=== PATIENT | female | born 1940 | race American Indian/Alaskan Native ===

== ENCOUNTER → 2016-12-02 08:14 | Outpatient (CLI) | payer MEDICARE, OTHER | END | disposition home or self-care (01) | LOC: D.MRI 08:14 | DX: R10.9 Unspecified abdominal pain (principal); R11.2 Nausea with vomiting, unspecified; R19.7 Diarrhea, unspecified ==

== ENCOUNTER 2017-02-02 15:29 | Inpatient (IN) | payer MEDICARE, OTHER ==
[~2017-02-02] VITALS: Ht 160 cm; Wt 110.0 kg
--- NOTE | ~2017-02-02 | HEMODYNAMI ---
PATIENT:ANGELY TOLENTINO MEDICAL RECORD: [id number] : 36 LOCATION: D.2228 ADMISSION DATE: 02/02/17 Generatedon:02/09/201715:54 Patient name: ANGELY TOLENTINO Patient #: [id number] SSN: [id number] B: 1940 Date of study: 02/09/2017 Page: Of Hemodynamic Procedure Report Patient Data Patient Demographics Procedure consent was obtained First Name: ANGELY Gender: Female Last Name: RAJAN : 1940 Middle Initial: EDUARDA Age: 76 year(s) Patient #: [id number] Race: Unknown Additional ID: [id number] Contact details [address]: [address] [place] [address] State: [place] City: [place] Zip code: [address] Past Medical History Allergies Allergen Reaction Date Comments Reported Other allergy 02/09/2017 Cephalexan, PCN, Topamax, Flonase Admission Admission Data Admission Date: 02/02/2017 Admission Time: 15:29 Room #: D.2228 Procedure Procedure Types Cath Procedure Diagnostic Procedure Right Heart Right Heart Pharmacology Study Miscellaneous Procedures Moderate Sedation up to 15 minutes Procedure Description Procedure Date Procedure Date: 02/09/2017 Procedure Start Time: 15:17 Procedure Staff Name Function Naresh Patterson MD Performing Physician Hardy Fermin RT Scrub Alexi Morris RN Nurse Alda Pradhan RT Monitor Procedure Data Cath Procedure Fluoroscopy Diagnostic fluoroscopy Total fluoroscopy Time: 3 time: 3 min min Diagnostic fluoroscopy Total fluoroscopy dose: 165 dose: 165 mGy mGy Entry Location Entry Primary Successful Side Size Upsize Upsize Entry Closure Succes sful Closure Location (Fr) 1 (Fr) 2 (Fr) Remarks Device Remarks Femoral Right 5 Fr Exoseal artery Femoral Right 7 Fr Exoseal vein Short Estimated blood loss: 10 ml Diagnostic catheters Device Type Used For End Catheter Placement HealthyChicciPsyQic 7Fr Pressure [place] Thermodilution julee Measurement Procedure Complications No complications Procedure Medications Medication Administration Route Dosage Oxygen NC 100 Lidocaine 2% added to field 20 Heparin Flush Bag added to field 2 bags (1000units/500ml NS) 0.9% NaCl I.V. 100 ml/hr Versed I.V. 0.5 mg Fentanyl I.V. 25 mcg Fentanyl I.V. 25 mcg Adenosine IV 3mg/ml I.V. 50 mcg/kg/min Adenosine IV 3mg/ml I.V. 100 mcg/kg/min Adenosine IV 3mg/ml I.V. 200 mcg/kg/min Adenosine IV 3mg/ml I.V. Hemodynamics Rest Heart Rate: 81 (bpm) Pressure Samples Time Site Value (mmHg) Purpose Heart Use Rate(bpm) 15:24 PA 84/44(60) Snapshot 84 15:25 PCW 28/28(25) Snapshot 86 15:32 PA 83/42(58) Snapshot 82 15:34 PA 87/44(59) Snapshot 71 15:37 RV 76/10,18 Snapshot 84 15:37 RV 76/11,18 Snapshot 86 15:38 RA 26/26(22) Snapshot 84 Snapshots Pre Cath Intra NCS Post Cath Vital Signs Time Heart Resp SPO2 etCO2 TV3ltkk NIBP (mmHg) Rhythm Pain Sedation Rate (ipm) (%) (mmHg) (mmHg) Status Level (bpm) 15:03:56 87 16 98 0 0 137/95(118) NSR 0 (11) 10(A) , No pain 15:08:20 80 19 93 0 0 124/83(105) NSR 0 (11) 10(A) , No pain 15:12:46 79 17 93 0 0 122/78(104) NSR 0 (11) 10(A) , No pain 15:17:08 78 18 93 0 0 119/83(99) NSR 0 (11) 10(A) , No pain 15:21:33 83 15 92 0 0 124/79(98) NSR 0 (11) 10(A) , No pain 15:25:57 90 17 92 0 0 121/82(96) NSR 0 (11) 10(A) , No pain 15:30:21 86 17 92 0 0 121/79(98) NSR 0 (11) 10(A) , No pain 15:34:51 71 19 91 0 0 120/70(95) NSR 0 (11) 10(A) , No pain 15:39:12 81 17 91 0 0 122/83(103) NSR 0 (11) 10(A) , No pain 15:43:36 89 20 93 0 0 124/82(94) NSR 0 (11) 10(A) , No pain 15:52:00 83 18 92 0 0 No Cuff NSR 0 (11) 10(A) , No pain Medications Time Medication Route Dose Verified Delivered Reason Notes Effectiveness by by 15:01:50 Oxygen NC 100% Naresh Buffie for low 02 per rt vaportherm Leonardo Morris RN sats setup 15:02:26 Lidocaine 2% added 20ml vial Naresh Naresh for local to Leonardo Patterson MD anesthetic field 15:02:36 Heparin Flush added 2 bags Naresh Naresh used for Bag to Leonardo Patterson MD procedure (1000units/500ml field NS) 15:02:42 0.9% NaCl I.V. 100 ml/hr Naresh Buffie Per Leonardo Morris RN physician 15:10:52 Versed I.V. 0.5 mg Naresh Buffie for Leonardo Morris RN sedation 15:10:59 Fentanyl I.V. 25 mcg Naresh Buffie for Leonardo Morris RN sedation 15:18:18 Fentanyl I.V. 25 mcg Naresh Buffie for Leonardo Morris RN sedation 15:27:35 Adenosine IV I.V. 50 Naresh Buffie Per 3mg/ml mcg/kg/min Leonardo Morris RN physician 15:30:03 Adenosine IV I.V. 100 Naresh Buffie Per 3mg/ml mcg/kg/min Leonardo Morris RN physician 15:32:31 Adenosine IV I.V. 200 Naresh Buffie Per 3mg/ml mcg/kg/min Leonardo Morris RN physician 15:34:31 Adenosine IV I.V. stopped Naresh Buffie Per 3mg/ml Leonardo Morris RN physician Procedure Log Time Note 14:16:30 Diagnostic Cath Status : Elective 14:17:56 Hardy Fermin RT(R) (CV) sent for patient. Start room use. 14:17:59 Time tracking: Regular hours 14:18:08 Plan of Care:Hemodynamics will remain stable., Cardiac rhythm will remain stable., Comfort level will be maintained., Respiratory function will remain adequate., Patient/ family verbilizes understanding of procedure., Procedure tolerated without complication., Recovers from procedure without complications.. 15:01:50 Oxygen 100% vaportherm NC was administered by Alexi Morris RN; for low 02 sats; per rt setup 15:02:26 Lidocaine 2% 20ml vial added to field was administered by Naresh Patterson MD; for local anesthetic; 15:02:34 Patient received from Med/Surg to CCL 1 Alert and oriented. Tansferred to table in Supine position. 15:02:35 Warm blankets applied, and john hugger turned on for patient comfort. 15:02:36 Heparin Flush Bag (1000units/500ml NS) 2 bags added to field was administered by Naresh Patterson MD; used for procedure; 15:02:36 Correct patient and procedure confirmed by team. 15:02:37 Signed procedure consent form obtained from patient. 15:02:38 ECG and BP/O2 sat monitors applied to patient. 15:02:41 Vital chart was started 15:02:42 0.9% NaCl 100 ml/hr I.V. was administered by Alexi Morris RN; Per physician; 15:02:42 Baseline sample Acquired. 15:02:51 Full Disclosure recording started 15:05:21 H&P Date Dictated: 02/08/2017 Within 30 days and on chart.. 15:05:26 Pre-procedure instructions explained to patient. 15:05:32 Family in waiting room. 15:05:45 Patient NPO since Midnight. 15:06:23 Patient allergic to Other allergyCephalexan, PCN, Topamax, Flonase 15:06:26 Is the patient allergic to Iodine/contrast media? No. 15:06:52 Patient diabetic? Yes. 15:06:54 If diabetic: On Metformin? Yes 15:06:57 If on Metformin: Last Dose? 02/07/2017 15:07:06 Is patient on blood thinner?No 15:07:17 Airway obstruction? Unknown ? 15:07:23 Dentures? Yes ? 15:07:34 IV patent on arrival in left forearm with 0.9% NaCl at KVO. 15:07:49 Lab results completed and on chart. 15:07:54 Right groin area was prepped with chlora-prep and draped in sterile fashion 15:07:56 Alarms reviewed by R. N. 15:07:56 Sharps counted by scrub and verified by R.N. 15:07:58 Physician paged 15:07:58 Physician arrived 15:08:00 --------ALL STOP TIME OUT------ 15:08:02 Final Timeout: patient, procedure, and site verified with staff and physician. All members of the team are in agreement. 15:08:12 Right groin site verified by team. 15:08:17 Physical assessment completed. ASA score P 3 - A patient with severe systemic disease as per Naresh Patterson MD. 15:08:23 Sedation plan: IV Moderate Sedation Versed, Fentanyl 15:08:35 Use device set Femoral Dx 15::52 Versed 0.5 mg I.V. was administered by Alexi Morris RN; for sedation; 15:10:59 Fentanyl 25 mcg I.V. was administered by Alexi Morris RN; for sedation; 15:11:21 Acist Syringe opened to sterile field. 15:11:22 Bag Decanter opened to sterile field. 15:11:24 Medline Cath Pack opened to sterile field. 15:11:31 Acist Hand Control opened to sterile field. 15:11:33 Acist Manifold opened to sterile field. 15:11:37 Tegaderm 4 x 4 opened to sterile field. 15:11:38 Terumo 7Fr [place] Sheath opened to sterile field. 15:16:04 Zero performed for pressure channel P1 15:16:20 Zero performed for pressure channel P1 15:16:31 Zero performed for pressure channel P1 15:16:48 Procedure started. 15:17:06 Local anesthetic to right femoral vein with Lidocaine 2% by Naresh Patterson MD.INITIAL ACCESS ONLY 15:18:18 Fentanyl 25 mcg I.V. was administered by Alexi Morris RN; for sedation; 15:20:14 Terumo 5Fr [place] Sheath opened to sterile field. 15:20:29 A 5 Fr sheath was inserted into the Right Femoral artery 15:21:46 A 7 Fr Short sheath was inserted into the Right Femoral vein 15:23:20 A HealthyChicciPsyQic 7Fr [place] Thermodilution julee was advanced over the wire and used for Pressure Measurement. 15:23:46 [place] 150cm J .025 wire opened to sterile field. 15:23:50 [place]-Acl "C" tip catheter inserted 15:27:35 Adenosine IV 3mg/ml 50 mcg/kg/min I.V. was administered by Alexi Morris RN; Per physician; 15:29:51 Timer 1 started at 3:28 PM, stopped at 3:29 PM, duration 00:01:48 sec. 15:30:01 Timer 1 started at 3:29 PM, stopped at 3:30 PM, duration 00:00:02 sec. 15:30:03 Adenosine IV 3mg/ml 100 mcg/kg/min I.V. was administered by Alexi Morris RN; Per physician; 15:32:13 PA pressures recorded with adenosine 15:32:27 Timer 1 started at 3:30 PM, stopped at 3:32 PM, duration 00:02:13 sec. 15:32:31 Adenosine IV 3mg/ml 200 mcg/kg/min I.V. was administered by Alexi Morris RN; Per physician; 15:34:31 Adenosine IV 3mg/ml stopped I.V. was administered by Alexi Morris RN; Per physician; 15:35:01 Timer 1 started at 3:32 PM, stopped at 3:35 PM, duration 00:02:16 sec. 15:37:42 PA sat: 70.6 15:38:59 SAT for RV: 71.2 15:39:24 [place] removed. 15:39:57 RA SAT : 71.0 15:40:04 Cordis 5Fr Exoseal opened to sterile field. 15:40:06 Cordis 7Fr Exoseal opened to sterile field. 15:40:34 Sheath removed intact; hemostasis achieved with Exoseal to the Right Femoral vein. 15:40:43 Sheath removed intact; hemostasis achieved with Exoseal to the Right Femoral artery. 15:42:04 Procedure ended.(Physican Out) 15:42:23 Fluoroscopy time 03.00 minutes. 15:42:31 Fluoroscopy dose: 165 mGy 15:42:31 Flurop Dose total: 165 15:42:36 Sharps counted by scrub and verified by R.N. 15:42:39 Insertion/operative site no bleeding no hematoma. 15:42:47 Post-op/insertion site Right Femoral artery dressed using a 4 x 4 and Tegaderm. 15:42:52 Post-op/insertion site Right Femoral vein dressed using a 4 x 4 and Tegaderm. 15:42:58 Post Procedure Pulses reassessed and unchanged 15:43:04 Post-procedure physical assessment completed. ASA score P 3 - A patient with severe systemic disease as per Naresh Patterson MD. 15:43:09 Post procedure rhythm: unchanged. 15:43:13 Estimated blood loss: 10 ml 15:43:29 Post procedure instruction explained to patient.Patient verbalizes understanding. 15:44:12 Procedure type changed to Cath procedure, Diagnostic procedure, Right Heart, Right Heart Pharmacology Study, Miscellaneous Procedures, Moderate Sedation up to 15 minutes 15:44:15 Procedure and supply charges have been captured, reviewed, submitted and are correct. 15:44:46 Procedure Complication : No complications 15:44:49 Vital chart was stopped 15:44:50 See physician's report for complete and final results. 15:44:57 Report given to Med/Surg. 15:45:23 Patient transfered to [facility] with Bed. 15:52:52 End room use (Document Last) Device Usage Item Name Manufacture Quantity Catalog Hospital Part Current Minima l Lot# / Number Charge Number Stock Stock Serial# Code Acist Syringe Acist 1 08003 [id number] 096696 [id number] 20 [employer] Systems Inc Bag Decanter Microtek 1 2002S 711475 20913 388854 5 Medical Inc. Medline Cath Cardinal 1 [id number] 443396 10864 955446 5 Pack Health Acist Hand Acist 1 72929 340141 781887 910687 5 Control Medical Systems Inc Acist Manifold Acist 1 24628 662408 981586 584773 5 Medical Systems Inc Tegaderm 4 x 4 3M 1 1626W 876830 573063 313498 5 Terumo 7Fr Terumo 1 [id number] 642827 788962 934108 5 [place] Sheath Terumo 5Fr Terumo 1 [id number] 222527 970293 509109 40 [place] Sheath Knapp Knapp 1 [id number] 562593 61206 553901 3 Lifesciences Lifesciences 7Fr [place] Thermodilution julee [place] [address] [place] 1 461435 604884 940196 111249 2 J .025 wire Cordis 5Fr Cardinal 1 EX500 909536 060525 239563 10 Exoseal Health Cordis 7Fr Cardinal 1 EX700 605621 253082 948175 5 Exoseal Health Signature Audit [place] Stage Time Signature Unsigned Intra-Procedure 02/09/2017 Alda Pradhan 3:54:41 PM RT(R) Signatures Monitor : Alda Pradhan Signature : RT Date : Time : [id number] [place] [address]
--- NOTE | 2017-02-02 15:00 | NUR ---
RECIEVED TO FLOOR, DENIES NEEDS, IV PLACED TO LEFT FOREARM, ORIENTED TO ROOM, WILL CONTINUE TO MONTIOR
[2017-02-02] MEDS ORDERED: CATAPRES0.2 MG PO (15:49)
[2017-02-02] MEDS ORDERED: EXFORGE HCT 101 EAC2 PO (15:51)
[2017-02-02] MEDS ORDERED: GLUCOVANCE 2.5-1 TAB PO (15:52)
[2017-02-02] MEDS ORDERED: ZIAC 5-6.25 MG1 TAB PO (15:52)
[2017-02-02] MEDS ORDERED: BAYER CHEWABLE81 MG PO (15:53)
[2017-02-02] MEDS ORDERED: IPRAT-ALBUT 0.5-3 ML UPD (15:54)
[2017-02-02] MEDS ORDERED: OMEPRAZOLE40 MG PO (15:55)
[2017-02-02] MEDS ORDERED: LEVAQUIN500 MG PO (15:55)
[2017-02-02] MEDS ORDERED: MIDRIN1 CA1 (16:01)
[2017-02-02] MEDS ORDERED: [UNRECOGNIZED DRUG - OTHER] IM (16:07)
[2017-02-02 16:27] LABS: BASOPHILS 0.4 % (0-2); EOSINOPHILS 2.2 % (0-7); HEMATOCRIT 47.9 % (36.0-48.0); HEMOGLOBIN 15.6 g/dL (12-16); IMMATURE GRANULOCYTES 0.2 % (0-5); LYMPHOCYTES 15.8 % (15-50); MCH 30.4 pg (26.0-34.0); MCHC 32.6 g/dL (31.0-37.0); MCV 93.4 fL (80.0-100.0); MONOCYTES 10.1 % (2-11); NEUTROPHILS 71.3 % (40-80); RBC 5.13 10x6/uL (4.00-5.40); RDW 15.2 % (11.5-14.5); WBC 8.6 10x3/uL (4.8-10.8)
[2017-02-02 16:28] LABS: PLATELET COUNT 243 10x3/uL (130-400)
[2017-02-02 16:48] LABS: ALBUMIN 3.2 g/dL (3.4-5.0); ANION GAP 16.5 mmol/L (8-16); BILIRUBIN - TOTAL 0.68 mg/dL (0.2-1.3); CALCIUM 9.1 mg/dL (8.5-10.1); CARBON DIOXIDE 22.4 mmol/L (21.0-32.0); CREATININE - SERUM 1.1 mg/dL (0.6-1.3); POTASSIUM - SERUM 3.9 mmol/L (3.5-5.1); PROTEIN - SERUM 7.3 g/dL (6.4-8.2)
[2017-02-02 17:00] VITALS: BP 106/65
[2017-02-02 18:04] VITALS: BP 106/65; Ht 160 cm; Wt 110.0 kg
--- NOTE | 2017-02-02 19:53 | NUR ---
PT LYING IN BED WITH HOB ELEVATED, ASSESSMENT COMPLETED, NO ACUTE DISTRESS NOTED, OXIMIZER IN PLACE @ 12L, DENIES PAIN OR NEEDS, SR'S UP, BOX ALARM ON, CL IN REACH, WILL PLACE SCD'S PER ORDERS, WILL MONITOR
[2017-02-02 20:00] VITALS: BP 111/58
--- NOTE | 2017-02-02 21:18 | NUR ---
DENIES PAIN OR NEEDS AT THIS TIME, FALL PRECAUTIONS IN PLACE, CL IN REACH
[2017-02-02 22:32] LABS: APPEARANCE CLEAR (CLEAR); BILIRUBIN NEGATIVE (NEGATIVE); COLOR DK YELLOW (YELLOW); GLUCOSE NEGATIVE (NEGATIVE); KETONE NEGATIVE (NEGATIVE); LEUKOCYTE ESTERASE NEGATIVE (NEGATIVE); NITRITE NEGATIVE (NEGATIVE); PROTEIN NEGATIVE (NEGATIVE); UROBILINOGEN NORMAL (NORMAL)
--- NOTE | 2017-02-02 23:05 | NUR ---
CONTINUES TO DENY PAIN OR NEEDS, NO ACUTE DISTRESS NOTED, SAFETY MEASURES IN PLACE, WILL CONTINUE TO MONITOR
[2017-02-03] VITALS: BP 119/65
[2017-02-03 04:00] VITALS: BP 136/78
[2017-02-03 06:16] LABS: BASOPHILS 0.1 % (0-2); EOSINOPHILS 3.5 % (0-7); HEMATOCRIT 43.6 % (36.0-48.0); IMMATURE GRANULOCYTES 0.2 % (0-5); LYMPHOCYTES 13.5 % (15-50); MCH 30.2 pg (26.0-34.0); MCHC 32.1 g/dL (31.0-37.0); MEAN PLATELET VOLUME 10.1 fL (7.4-10.4); MONOCYTES 10.2 % (2-11); NEUTROPHILS 72.5 % (40-80); PLATELET COUNT 237 10x3/uL (130-400); RBC 4.64 10x6/uL (4.00-5.40); RDW 15.4 % (11.5-14.5); WBC 9.3 10x3/uL (4.8-10.8)
[2017-02-03 06:32] LABS: ALBUMIN 2.7 g/dL (3.4-5.0); ANION GAP 10.5 mmol/L (8-16); BILIRUBIN - TOTAL 0.9 mg/dL (0.2-1.3); CALCIUM 8.2 mg/dL (8.5-10.1); CARBON DIOXIDE 24.9 mmol/L (21.0-32.0); POTASSIUM - SERUM 3.4 mmol/L (3.5-5.1); PROTEIN - SERUM 6.3 g/dL (6.4-8.2)
[2017-02-03 07:45] LABS: ERYTHROCYTE SEDIMENTATION RATE 5 mm/hr (0-30)
--- NOTE | 2017-02-03 08:00 | NUR ---
ASSESSMENT PER FLOW SHEET.PT WITHOUT NEEDS.PT DOES NOT SEEM TO BE IN DISTRES,BUT SATS ARE 86-88 ON 15 LITERS PER OXYMIZER.CALL TO DR PRATER,ORDERS RECIEVED AND INITIATED.
[2017-02-03 09:04] VITALS: BP 123/73
--- NOTE | 2017-02-03 12:00 | NUR ---
SATS HAVE BEEN RANGING FROM 87-90% ON 100%,40 LITERS WITH VAPOTHERM.MONITOR
[2017-02-03 12:44] VITALS: BP 108/71
[2017-02-03 16:30] VITALS: BP 103/58
--- NOTE | 2017-02-03 18:52 | NUR ---
REMAINS WITHOUT NEEDS,WITHOUT CHANGE.CONT PLAN OF CARE
[2017-02-03 19:00] VITALS: BP 106/69
[2017-02-04] VITALS: BP 117/67
--- NOTE | 2017-02-04 00:36 | NUR ---
EYES CLOSED RESPIRAIONS WITH EASE AND UNLABORED.
[2017-02-04 04:00] VITALS: BP 133/78
--- NOTE | 2017-02-04 04:52 | NUR ---
REC'D PATIENT SITTING UP IN BED. ALERT AND ORIENTED X4. DENIED PAIN AT THIS TIME. DENIED NEEDS AT THIS TIME. WILL ADMIN PM/AM MEDS PRESCRIBED. INSTRUCTED TO CALL IF NEEDED ANYTHING. VERBALIZED UNDERSTANDING. BED LOW, LOCKED, CALL LIGHT IN REACH, ALARM ON.
[2017-02-04 05:57] LABS: BASOPHILS 0 % (0-2); EOSINOPHILS 0 % (0-7); HEMATOCRIT 44.6 % (36.0-48.0); HEMOGLOBIN 14.4 g/dL (12-16); IMMATURE GRANULOCYTES 0.2 % (0-5); LYMPHOCYTES 5.7 % (15-50); MCHC 32.3 g/dL (31.0-37.0); MCV 92.9 fL (80.0-100.0); MEAN PLATELET VOLUME 10.1 fL (7.4-10.4); NEUTROPHILS 92.1 % (40-80); PLATELET COUNT 260 10x3/uL (130-400); WBC 8.9 10x3/uL (4.8-10.8)
[2017-02-04 06:18] LABS: ANION GAP 15.6 mmol/L (8-16); BILIRUBIN - TOTAL 0.7 mg/dL (0.2-1.3); CALCIUM 8.2 mg/dL (8.5-10.1); POTASSIUM - SERUM 3.6 mmol/L (3.5-5.1); PROTEIN - SERUM 7.1 g/dL (6.4-8.2)
[2017-02-04 09:36] VITALS: BP 130/64
[2017-02-04 10:19] LABS: ANA REFLEX - DIRECT Negative (Negative)
[2017-02-04 11:49] VITALS: BP 117/64
--- NOTE | 2017-02-04 14:17 | NUR ---
Patient Name: ANGELY TOLENTINO Admission Status: Urgent Accout number: [id number] Admission Date: 02-02-2017 : 1940 Admission Diagnosis:PNEUMONIA, UNSPECIFIED ORGANISM Attending: ALEX Current LOS: 2 Anticipated DC Date: 02-08-2017 Planned Disposition: Home Primary Insurance: MEDICARE A & B Discharge Planning Comments: CM MET WITH PATIENT REGARDING D/C NEEDS AND PLANS. PATIENT STATED HER DAUGHTER LIVES WITH HER AND WILL DRIVE HER HOME AT DISCHARGE. PATIENT STATED THERE IS 1 STEP TO ENTER HER HOME AND NO STAIRS INSIDE. PATIENT IS INDEPENDENT AND HAS A WALKER (DOES NOT USE) AND GLUCOMETER (CHECKS DAILY) AT HOME. PATIENTS PCP IS DR. CLEMONS AND PHARMACY IS [facility]. PATIENT DENIED HOME HEALTH AT THIS TIME. CM WILL CONTINUE TO FOLLOW PATIENT WITH D/C NEEDS AND PLANS. PCP DR. DEONTE HARD[facility]- [phone] ZEINAB (DAUGHTER) [phone] Labor Specialist: Gi Veras Is the patient Alert and Oriented? Yes 0 * How many steps to enter\exit or inside your home? 1 0 * PCP DR. CLEMONS 0 * [facility]acy [facility] 0 * Preadmission Environment Home with Family 0 * ADLs Independent 0 * Equipment Glucometer Walker 0 * List name and contact numbers for known caregivers / representatives who currently or will assist patient after discharge: ZEINAB (DAUGHTER) [phone] 0 * Community resources currently utilized None 0 * Additional services required to return to the preadmission environment? Yes 0 * Can the patient safely return to the preadmission environment? Yes 0 * Has this patient been hospitalized within the prior 30 days at any hospital? No 0 Grand Total: 0
[2017-02-04 20:00] VITALS: BP 133/61
[2017-02-05] VITALS: BP 120/77
--- NOTE | 2017-02-05 03:00 | NUR ---
PT STATED SHE NEEDS ASSIST UP TO BATHROOM. PT REFUSES TO USE BEDSIDE COMMODE. PT INSISTING ON GETTING UP ON OPPOSITE SIDE OF BED AND WALKING AROUND TO BATHROOM WHICH IS LONGER DISTANCE. PT IS DYSPNEIC WITH LITTLE EXERTION AND DESATS QUICKLY. TRIED TO EXPLAIN BENEFITS OF USING BEDSIDE COMMODE OR GETTING OUT ON SIDE CLOSEST TO BATHROOM VERSUS WALKING LONG WAY AROUND BED. PT BECAME AGITATED AND LOUD. REFUSED TO GO TO BATHROOM STATING SHE "WOULD JUST HOLD IT UNTIL MORNING." PT REFUSED SOLAR RESOURCE ASSESSOR AND ANOTHER NURSE THAT OFFERED TOILETING ALSO.
[2017-02-05 04:00] VITALS: BP 116/65
[2017-02-05 06:22] LABS: BASOPHILS 0 % (0-2); EOSINOPHILS 0.1 % (0-7); HEMATOCRIT 44.9 % (36.0-48.0); HEMOGLOBIN 14.5 g/dL (12-16); IMMATURE GRANULOCYTES 0.2 % (0-5); LYMPHOCYTES 4.5 % (15-50); MCHC 32.3 g/dL (31.0-37.0); MEAN PLATELET VOLUME 10.2 fL (7.4-10.4); MONOCYTES 4.1 % (2-11); NEUTROPHILS 91.1 % (40-80); PLATELET COUNT 278 10x3/uL (130-400); RBC 4.83 10x6/uL (4.00-5.40)
[2017-02-05 06:31] LABS: WBC 14.6 10x3/uL (4.8-10.8)
[2017-02-05 06:56] LABS: ALBUMIN 2.9 g/dL (3.4-5.0); BILIRUBIN - TOTAL 0.73 mg/dL (0.2-1.3); CALCIUM 8.3 mg/dL (8.5-10.1); CARBON DIOXIDE 26.4 mmol/L (21.0-32.0); CREATININE - SERUM 0.9 mg/dL (0.6-1.3); POTASSIUM - SERUM 3.4 mmol/L (3.5-5.1); PROTEIN - SERUM 6.7 g/dL (6.4-8.2)
[2017-02-05 08:56] VITALS: BP 103/57
[2017-02-05 12:36] VITALS: BP 119/71
[2017-02-05 16:15] VITALS: BP 116/77
[2017-02-05 20:00] VITALS: BP 119/63
[2017-02-06] VITALS: BP 106/61
[2017-02-06 05:09] VITALS: BP 128/63
--- NOTE | 2017-02-06 07:30 | NUR ---
PATIENT RESTING IN THE BED AND IS AWAKE, ALERT, AND ORIENTED X4. NO COMPLAINTS OF PAIN. ASSESSMENT COMPLETED. SEE FLOWSHEET FRO ANY DETAILS. BOX ALARM IN PLACE FOR SAFETY. PATIENT DENIES ANY NEEDS AT PRESENT TIME. CALL LIGHT IN PATIENT'S REACH. WILL MONITOR.
[2017-02-06 07:38] LABS: BASOPHILS 0 % (0-2); EOSINOPHILS 0 % (0-7); HEMATOCRIT 46.3 % (36.0-48.0); HEMOGLOBIN 14.9 g/dL (12-16); IMMATURE GRANULOCYTES 0.3 % (0-5); LYMPHOCYTES 3.5 % (15-50); MCH 30.1 pg (26.0-34.0); MCHC 32.2 g/dL (31.0-37.0); MCV 93.5 fL (80.0-100.0); MEAN PLATELET VOLUME 10.1 fL (7.4-10.4); NEUTROPHILS 91.2 % (40-80); PLATELET COUNT 268 10x3/uL (130-400); RBC 4.95 10x6/uL (4.00-5.40); WBC 11.9 10x3/uL (4.8-10.8)
[2017-02-06 08:12] LABS: ALBUMIN 3.1 g/dL (3.4-5.0); ANION GAP 11.7 mmol/L (8-16); BILIRUBIN - TOTAL 0.67 mg/dL (0.2-1.3); CALCIUM 8.2 mg/dL (8.5-10.1); CARBON DIOXIDE 26.8 mmol/L (21.0-32.0); CREATININE - SERUM 0.9 mg/dL (0.6-1.3); POTASSIUM - SERUM 3.5 mmol/L (3.5-5.1); PROTEIN - SERUM 6.9 g/dL (6.4-8.2)
[2017-02-06 09:14] VITALS: BP 122/88
[2017-02-06 12:20] VITALS: BP 132/69
[2017-02-06 15:58] VITALS: BP 103/56
--- NOTE | 2017-02-06 16:41 | NUR ---
PATIENT RESTING QUIETLY WITH HER EYES CLOSED. PATIENT AWAKENS EASILY TO VERBAL STIMULI. SCHEDULED MEDICATIONS GIVEN TO PATIENT. PATIENT READY TO EAT DINNER. DENIES ANY NEEDS AT PRESENT TIME. CALL LIGHT IN PATIENT'S REACH. WILL MONITOR.
[2017-02-06 23:14] VITALS: BP 104/60
[2017-02-07 04:00] VITALS: BP 106/69
[2017-02-07 07:06] LABS: BASOPHILS 0 % (0-2); EOSINOPHILS 0 % (0-7); HEMATOCRIT 43.6 % (36.0-48.0); HEMOGLOBIN 13.8 g/dL (12-16); IMMATURE GRANULOCYTES 0.1 % (0-5); LYMPHOCYTES 4.9 % (15-50); MCH 29.8 pg (26.0-34.0); MCHC 31.7 g/dL (31.0-37.0); MCV 94.2 fL (80.0-100.0); MEAN PLATELET VOLUME 10.1 fL (7.4-10.4); MONOCYTES 5.7 % (2-11); NEUTROPHILS 89.3 % (40-80); PLATELET COUNT 211 10x3/uL (130-400); RBC 4.63 10x6/uL (4.00-5.40); RDW 15.1 % (11.5-14.5); WBC 7.7 10x3/uL (4.8-10.8)
[2017-02-07 07:28] LABS: ALBUMIN 2.7 g/dL (3.4-5.0); ANION GAP 10.6 mmol/L (8-16); BILIRUBIN - TOTAL 0.69 mg/dL (0.2-1.3); CALCIUM 7.9 mg/dL (8.5-10.1); CARBON DIOXIDE 26.7 mmol/L (21.0-32.0); CREATININE - SERUM 0.9 mg/dL (0.6-1.3); POTASSIUM - SERUM 3.3 mmol/L (3.5-5.1); PROTEIN - SERUM 5.9 g/dL (6.4-8.2)
[2017-02-07 09:35] VITALS: BP 130/75
--- NOTE | 2017-02-07 10:05 | NUR ---
PATIENT TRANSFEERED VIA BED TO RADIOLOGY FOR CT OF HER CHEST.
[2017-02-07 12:31] VITALS: BP 128/68
--- NOTE | 2017-02-07 18:19 | NUR ---
PATIENT RESTING IN THE BED. DAUGHTER AT PATIENT'S BEDSIDE. PATIENT DENIES ANY NEEDS AT PRESENT TIME. CALL SAGRARIO HOWARD PATIENT'S REACH. WILL MONITOR.
[2017-02-07 18:22] VITALS: BP 126/64
--- NOTE | 2017-02-07 19:15 | NUR ---
RECIEVED SHIFT REPORT. PT IS LYING IN BED. ALERT AND ORIENTED AND ABLE TO VERBALIZE NEEDS. IV IS PATENT AND FLUIDS ARE RUNNING PER ORDER. O2 PER VAPOTHERM 40L @ 70%. PT IS AMBULATORY WITH ASSISTANCE. PT DENIES ANY PAIN AT THIS TIME. NO NEEDS ARE VERBALIZED AT THIS TIME. WILL CONTINUE TO MONITOR. SIDE RAILS ARE UP X 2. BED IS IN LOWEST POSITION. BOX ALARM IS ON FOR SAFETY. CALL LIGHT IS WITHIN REACH.
[2017-02-07 20:00] VITALS: BP 112/70
--- NOTE | 2017-02-07 22:22 | NUR ---
SHIFT ASSESSMENT COMPLETED. NIGHT MEDS GIVEN WITH NO PROBLEMS. PT RECIEVED 10 UNITS INSULIN PER SLIDING SCALE FOR KJMO=612. PT REQUESTING PRN RESTORIL FOR SLEEP. ADMINISTERED PER ORDER. DENIES FURTHER NEEDS. WILL MONITOR. SIDE RAILS X 2. BED LOW. BOX ALARM ON. CALL LIGHT IN REACH.
[2017-02-08 04:00] VITALS: BP 118/71
[2017-02-08 06:59] LABS: BASOPHILS 0 % (0-2); EOSINOPHILS 0 % (0-7); HEMATOCRIT 46.4 % (36.0-48.0); IMMATURE GRANULOCYTES 0.3 % (0-5); LYMPHOCYTES 7.1 % (15-50); MCH 30.1 pg (26.0-34.0); MCHC 32.3 g/dL (31.0-37.0); MCV 93.2 fL (80.0-100.0); MEAN PLATELET VOLUME 10.1 fL (7.4-10.4); MONOCYTES 7.6 % (2-11); PLATELET COUNT 246 10x3/uL (130-400); RBC 4.98 10x6/uL (4.00-5.40); RDW 14.8 % (11.5-14.5)
[2017-02-08 07:22] LABS: ALBUMIN 2.9 g/dL (3.4-5.0); ANION GAP 11.4 mmol/L (8-16); CALCIUM 7.9 mg/dL (8.5-10.1); POTASSIUM - SERUM 3.4 mmol/L (3.5-5.1); PROTEIN - SERUM 6.3 g/dL (6.4-8.2)
--- NOTE | 2017-02-08 07:30 | NUR ---
ASSESSMENT COMPLETE. IV TO L FA PATENT. VAPOTHERM IN USE. CONT PULSE OX IN USE. BOX ALARM IN USE. SOB ON EXERTION. DENIES ANY NEEDS AT PRESENT.
[2017-02-08 07:32] LABS: WBC 10.1 10x3/uL (4.8-10.8)
[2017-02-08 08:25] VITALS: BP 119/66
[2017-02-08 12:53] VITALS: BP 122/81
--- NOTE | 2017-02-08 14:01 | NUR ---
RESTING QUIETLY WITH EYES CLOSED. RESP EVEN,NONLABORED.
[2017-02-08 15:57] VITALS: BP 114/72
--- NOTE | 2017-02-08 17:30 | NUR ---
IV TO L FA WITH SWELLING NOTED. IV REMOVED. CATHETER TIP INTACT. IV SITED TO L HAND WITH 22 GUAGE X 1 ATTEMPT.
--- NOTE | 2017-02-08 19:15 | NUR ---
RECIEVED SHIFT REPORT. PT IS LYING IN BED. ALERT AND ORIENTED AND ABLE TO VERBALIZE NEEDS. IV IS PATENT AND FLUIDS ARE RUNNING PER ORDER. SCD'S OFF AT THIS TIME. VAPOTHERM 40L AT 65%. PT IS AMBULATORY WITH ASSISTANCE. PT DENIES ANY PAIN AT THIS TIME. NO NEEDS ARE VERBALIZED AT THIS TIME. WILL CONTINUE TO MONITOR. SIDE RAILS ARE UP X 2. BED IS IN LOWEST POSITION. BOX ALARM IS ON FOR SAFETY. CALL LIGHT IS WITHIN REACH.
[2017-02-08 20:00] VITALS: BP 123/73
--- NOTE | 2017-02-08 21:23 | NUR ---
SHIFT ASSESSMENT COMPLETED. NIGHT MEDS GIVEN WTIH NO PROBLEMS. PT RECIEVED 8 UNITS INSULIN PER SLIDING SCALE FOR JNHX=[id number]. NO NEEDS ARE VOICED. WILL MONITOR. DAUGHTER IS AT THE BED SIDE. SIDE RAILS X 2. BED LOW. BOX ALARM ON. CALL LIGHT IN REACH.
[2017-02-09] VITALS: BP 130/75
[2017-02-09 03:48] LABS: BASOPHILS 0 % (0-2); EOSINOPHILS 0 % (0-7); HEMATOCRIT 44.7 % (36.0-48.0); HEMOGLOBIN 14.4 g/dL (12-16); IMMATURE GRANULOCYTES 0.4 % (0-5); LYMPHOCYTES 5.7 % (15-50); MCH 29.9 pg (26.0-34.0); MCHC 32.2 g/dL (31.0-37.0); MCV 92.7 fL (80.0-100.0); MEAN PLATELET VOLUME 9.8 fL (7.4-10.4); NEUTROPHILS 85.9 % (40-80); PLATELET COUNT 205 10x3/uL (130-400); RBC 4.82 10x6/uL (4.00-5.40); RDW 14.8 % (11.5-14.5)
[2017-02-09 04:00] VITALS: BP 122/70
[2017-02-09 04:02] LABS: ALBUMIN 2.8 g/dL (3.4-5.0); ALKALINE PHOSPHATASE 111 U/L (46-116); ALT (SGPT) 28 U/L (10-68); BILIRUBIN - TOTAL 0.92 mg/dL (0.2-1.3); CALC OSMOLALITY 288 mosm/kg (275-300); CALCIUM 7.9 mg/dL (8.5-10.1); CARBON DIOXIDE 28.4 mmol/L (21.0-32.0); CHLORIDE - SERUM 104 mmol/L (98-107); CREATININE - SERUM 0.7 mg/dL (0.6-1.3); GLUCOSE 220 mg/dL (74-106); POTASSIUM - SERUM 3.7 mmol/L (3.5-5.1); PROTEIN - SERUM 5.8 g/dL (6.4-8.2); SODIUM 139 mmol/L (136-145); UREA NITROGEN 25 mg/dL (7-18); eGFR NON AFRICAN AMERICAN 86 mL/min (90-120)
[2017-02-09 08:17] VITALS: BP 134/85
[2017-02-09 12:01] VITALS: BP 119/77
--- NOTE | 2017-02-09 15:27 | NUR ---
NUTRITION MONITORING & EVAL CHART REVIEWED, PT OOR FOR PROCEDURE. GOOD PO INTAKE DIABETIC DIET PRIOR TO CURRENT NPO STATUS. WILL PROVIDE DIET WHEN RESUMED, MONITOR PO INTAKE. RD FOLLOWING
--- NOTE | 2017-02-09 16:25 | NUR ---
RECEIVED PT TO ROOM 2114 VIA BED FROM LEAD ELECTRICAL CONTROLS ENGINEER RT HEART CATH DRSG TO RT GROIN C/D/I PPP X4 VAPOTHERM INTACT AND IN PROGRESS
--- NOTE | 2017-02-09 19:09 | NUR ---
RESUMED CARE OF PT, LYING IN BED WITH EYES CLOSED RESPIRATIONS EVEN AND UNLABORED ON VAPOTHERM 40LPM @ 100%. RIGHT HAND INFUSING NS @ KVO. 85 SR ON TELEMETRY. CALL LIGHT IN REACH. WILL CONTINUE TO MONITOR. SEE NURSE ASSESSMENT.
[2017-02-09 20:47] VITALS: BP 110/69
--- NOTE | 2017-02-09 22:51 | NUR ---
ASSISSTED TO BEDSIDE COMMODE, DAUGHTER AT BEDSIDE. WILL CONTINUE TO MONITOR.
--- NOTE | 2017-02-10 00:17 | NUR ---
BED BATH AND LINENS CHANGED. CHIEF HYDROELECTRIC STATION OPERATOR AT BEDSIDE TO OBTAIN VITALS, CALL LIGHT IN REACH. WILL CONTINUE TO MONITOR.
[2017-02-10 00:39] VITALS: BP 118/70
[2017-02-10 05:49] VITALS: BP 121/73
[2017-02-10 05:58] LABS: BASOPHILS 0 % (0-2); EOSINOPHILS 0 % (0-7); HEMATOCRIT 44.1 % (36.0-48.0); HEMOGLOBIN 14.3 g/dL (12-16); IMMATURE GRANULOCYTES 0.4 % (0-5); LYMPHOCYTES 5.3 % (15-50); MCH 29.8 pg (26.0-34.0); MCHC 32.4 g/dL (31.0-37.0); MCV 91.9 fL (80.0-100.0); MEAN PLATELET VOLUME 10.3 fL (7.4-10.4); MONOCYTES 7.3 % (2-11); PLATELET COUNT 213 10x3/uL (130-400); RDW 14.8 % (11.5-14.5)
[2017-02-10 06:10] LABS: WBC 10.3 10x3/uL (4.8-10.8)
--- NOTE | 2017-02-10 06:16 | NUR ---
NO CHANGES FROM PREVIOUS ASSESSMENT, CALL LIGHT IN REACH.
[2017-02-10 06:50] LABS: ALBUMIN 2.6 g/dL (3.4-5.0); ALKALINE PHOSPHATASE 89 U/L (46-116); ALT (SGPT) 26 U/L (10-68); CALC OSMOLALITY 288 mosm/kg (275-300); CHLORIDE - SERUM 104 mmol/L (98-107); CREATININE - SERUM 0.7 mg/dL (0.6-1.3); GLUCOSE 227 mg/dL (74-106); POTASSIUM - SERUM 3.6 mmol/L (3.5-5.1); PROTEIN - SERUM 5.7 g/dL (6.4-8.2); SODIUM 140 mmol/L (136-145); UREA NITROGEN 21 mg/dL (7-18); eGFR NON AFRICAN AMERICAN 86 mL/min (90-120)
--- NOTE | 2017-02-10 11:34 | NUR ---
RESP UL ON 40L VAPOTHERM. IV PATENT. TELEMETRY CAF 84. WILL CONT. PLAN OF CARE.
[2017-02-10 12:46] VITALS: BP 147/83
--- NOTE | 2017-02-10 13:54 | EC ---
PATIENT:ANGELY TOLENTINO DATE OF SERVICE: 02/02/17 SEX: F MEDICAL RECORD: [id number] DATE OF : [birth year] LOCATION:D. D.211 AGE OF PATIENT: 76 ADMISSION DATE: 02/02/17 REFERRING PHYSICIAN: INTERPRETING PHYSICIAN: JOYCE PATTERSON M.D. ECHOCARDIOGRAM REPORT ECHO CHARGES 5 ECHO LIMITED CLINICAL DIAGNOSIS: BUBBLE STUDY ONLY TO ASSESS FOR SHUNT ECHOCARDIOGRAPHIC MEASUREMENTS (adult normal given) AC root (d.<3.7cm) 3.0 LV Septum d (<1.2 cm> 1.7 Valve Excursion 1.8 LV Septum (systole) 2.1 Left Atria (s.<4.0cm> 4.4 LVPW d(<1.2cm) 1.1 RV (d.<2.3cm) 2.7 LVPW (sytole) 1.9 LV diastole(<5.6CM) 5.3 MV E-F(>70mm/sec) LV systole 3.8 LVOT Diameter 1.8 MV exc.(>10mm) Est.ejection fraction (50-75%) Pericardial Effusion N DOPPLER: LVIT A E 131 LA RVSP 88.0 LVOT 97.0 AOP1/2T Asc. Ao 140 RVOT 62.0 RA PA 79.0 AV Gradient Peak 7.8 AV Mean 4.4 AV Area 1.5 MV Gradient Peak 6.7 MV Mean 2.3 MV Area COMMENTS: Hot Metal Charger: Momo MALONEY Mud Grinder:Momo Patterson TAPE# PACS DATE OF SERVICE: 02/04/2017 REFERRING PHYSICIAN: Danielito Calloway MD. INDICATION: Bubble study to evaluate for shunt. A full study was performed yesterday. Today's study is limited study as it is a bubble study to evaluate for ASD and PFO. DESCRIPTION: A bubble study was performed. There is no evidence of any ASD, ECHOCARDIOGRAM REPORT [id number] ANGELY TOLENTINO VSD or PFO. There is no flow of bubbles across the septum. IMPRESSION: Negative bubble study for atrial septal defect, ventricular septal defect or patent foramen ovale. TRANSINT:[id number] Voice Confirmation ID: [id number] DOCUMENT ID: [id number] JOYCE PATTERSON M.D. at 1354 CC: [id number] DICTATION DATE: 02/04/17 1241 EMAIL MARKETING COORDINATOR: 02/04/17 2230 ADM IN [place] [id number] [place] [id number]
--- NOTE | 2017-02-10 13:54 | EC ---
PATIENT:ANGELY TOLENTINO DATE OF SERVICE: 02/02/17 SEX: F MEDICAL RECORD: [id number] DATE OF : 36 LOCATION:D. D.211 AGE OF PATIENT: 76 ADMISSION DATE: 02/02/17 REFERRING PHYSICIAN: INTERPRETING PHYSICIAN: JOYCE PATTERSON M.D. ECHOCARDIOGRAM REPORT ECHO CHARGES 5 ECHO LIMITED CLINICAL DIAGNOSIS: BUBBLE STUDY ONLY TO ASSESS FOR SHUNT ECHOCARDIOGRAPHIC MEASUREMENTS (adult normal given) AC root (d.<3.7cm) 3.0 LV Septum d (<1.2 cm> 1.7 Valve Excursion 1.8 LV Septum (systole) 2.1 Left Atria (s.<4.0cm> 4.4 LVPW d(<1.2cm) 1.1 RV (d.<2.3cm) 2.7 LVPW (sytole) 1.9 LV diastole(<5.6CM) 5.3 MV E-F(>70mm/sec) LV systole 3.8 LVOT Diameter 1.8 MV exc.(>10mm) Est.ejection fraction (50-75%) Pericardial Effusion N DOPPLER: LVIT A E 131 LA RVSP 88.0 LVOT 97.0 AOP1/2T Asc. Ao 140 RVOT 62.0 RA PA 79.0 AV Gradient Peak 7.8 AV Mean 4.4 AV Area 1.5 MV Gradient Peak 6.7 MV Mean 2.3 MV Area COMMENTS: Diet Supervisor: Momo MALONEY Advertising Operations Coordinator:Momo Patterson TAPE# PACS DATE OF SERVICE: 02/03/2017 REFERRING PHYSICIAN: Danielito Calloway MD. INDICATION: Dyspnea. DESCRIPTION: Left ventricle demonstrates left ventricular hypertrophy. No wall motion abnormalities are seen. Estimated ejection fraction is 55%. Mitral valve is structurally normal. There is mild regurgitation noted. Left atrium is mildly dilated. The aortic valve is trileaflet. I do not see any stenosis ECHOCARDIOGRAM REPORT [id number] ANGELY TOLENTINO or regurgitation. Right ventricle is mildly dilated. Tricuspid valve is normal. There is moderate regurgitation noted. Right ventricular systolic pressure is significantly elevated at 88 mmHg. There is no pericardial effusion seen. IMPRESSION: 1. Left ventricular hypertrophy, preserved ejection fraction of 55%. 2. Mild mitral regurgitation. 3. Moderate tricuspid regurgitation with pulmonary hypertension. TRANSINT:[id number] Voice Confirmation ID: [id number] DOCUMENT ID: [id number] JOYCE PATTERSON M.D. at 1354 CC: [id number] DICTATION DATE: 02/04/17 1238 CASSANDRA ARCHITECT: 02/04/17 2201 ADM IN [facility] [address] [id number]
[2017-02-10 15:58] VITALS: BP 117/70
--- NOTE | 2017-02-10 19:40 | NUR ---
ASSESSMENT COMPLETE, A&O. VAPOTHERM AT 40 LITERS AND 65%. IV TO RIGHT HAND WITH NS AT KVO. PT DENIES PAIN OR NEEDS, BED LOW, CL IN REACH.
[2017-02-10 20:04] VITALS: BP 110/57
--- NOTE | 2017-02-10 20:25 | NUR ---
WELDER FABRICATOR AT BEDSIDE TO OBTAIN VITALS, CALL LIGHT IN REACH. WILL CONTINUE WITH PLAN OF CARE. 80 CAF ON TELEMETRY
--- NOTE | 2017-02-10 21:53 | NUR ---
HS MEDS GIVEN, BS 177, COVERED PER S/S. CORRECTIONAL SUPPLY SUPERVISOR AT BED SIDE, BATH AND LINEN CHANGE COMPLETE.
[2017-02-11 00:24] VITALS: BP 117/65
[2017-02-11 04:32] VITALS: BP 120/70
[2017-02-11 05:19] LABS: BASOPHILS 0 % (0-2); EOSINOPHILS 0.1 % (0-7); HEMOGLOBIN 14.6 g/dL (12-16); IMMATURE GRANULOCYTES 0.9 % (0-5); MCHC 32.4 g/dL (31.0-37.0); MCV 92.4 fL (80.0-100.0); MEAN PLATELET VOLUME 10.3 fL (7.4-10.4); MONOCYTES 5.4 % (2-11); NEUTROPHILS 88.6 % (40-80); PLATELET COUNT 194 10x3/uL (130-400); RBC 4.87 10x6/uL (4.00-5.40); RDW 14.8 % (11.5-14.5); WBC 9.6 10x3/uL (4.8-10.8)
[2017-02-11 05:44] LABS: ALBUMIN 2.6 g/dL (3.4-5.0); ALKALINE PHOSPHATASE 101 U/L (46-116); ALT (SGPT) 24 U/L (10-68); CALC OSMOLALITY 293 mosm/kg (275-300); CARBON DIOXIDE 31.4 mmol/L (21.0-32.0); CHLORIDE - SERUM 104 mmol/L (98-107); CREATININE - SERUM 0.7 mg/dL (0.6-1.3); GLUCOSE 262 mg/dL (74-106); POTASSIUM - SERUM 3.7 mmol/L (3.5-5.1); PROTEIN - SERUM 5.5 g/dL (6.4-8.2); SODIUM 141 mmol/L (136-145); UREA NITROGEN 23 mg/dL (7-18); eGFR NON AFRICAN AMERICAN 86 mL/min (90-120)
[2017-02-11 07:59] VITALS: BP 127/70
[2017-02-11 12:02] VITALS: BP 95/43
[2017-02-11 15:52] VITALS: BP 102/51
--- NOTE | 2017-02-11 19:18 | NUR ---
RESUMED CARE OF PT, LYING IN BED RESPIRATINS EVEN AND UNLABORED ON VAPOTHERM 40LPM @ 52%. UPDRAFT IN PROGRESS. 82 CAF ON TELEMETRY. RIGHT HAND NS @ KVO. NO NEEDS NOTED AT THIS TIME. CALL LIGHT IN REACH. WILL CONTINUE TO MONITOR. SEE NURSE ASSESSMENT.
[2017-02-11 20:40] VITALS: BP 127/68
--- NOTE | 2017-02-11 23:39 | NUR ---
WORM GROWER AT BEDSIDE TO OBTAIN VITALS, CALL LIGHT IN REACH. WILL CONTINUE WITH PLAN OF CARE.
[2017-02-12 00:03] VITALS: BP 105/56
--- NOTE | 2017-02-12 03:55 | NUR ---
ASSISSTED TO BEDSIDE COMMODE, DESATS DOWN TO 70S. ONCE BACK TO BED QUICKLY REBOUNDED BACK TO HIGH 80S LOW 90S.
[2017-02-12 04:17] VITALS: BP 117/75
[2017-02-12 06:24] LABS: BASOPHILS 0 % (0-2); EOSINOPHILS 0 % (0-7); IMMATURE GRANULOCYTES 0.8 % (0-5); LYMPHOCYTES 5.4 % (15-50); MCH 29.9 pg (26.0-34.0); MCHC 32.6 g/dL (31.0-37.0); MCV 91.9 fL (80.0-100.0); MEAN PLATELET VOLUME 10.2 fL (7.4-10.4); MONOCYTES 5.6 % (2-11); NEUTROPHILS 88.2 % (40-80); PLATELET COUNT 179 10x3/uL (130-400); RBC 4.68 10x6/uL (4.00-5.40); RDW 14.9 % (11.5-14.5); WBC 9.6 10x3/uL (4.8-10.8)
--- NOTE | 2017-02-12 06:30 | NUR ---
NO CHANGES FROM PREVIOUS ASSESSMENT, CALL LIGHT IN REACH.
[2017-02-12 06:48] LABS: ALBUMIN 2.4 g/dL (3.4-5.0); ALKALINE PHOSPHATASE 116 U/L (46-116); ALT (SGPT) 23 U/L (10-68); CALC OSMOLALITY 274 mosm/kg (275-300); CALCIUM 7.9 mg/dL (8.5-10.1); CARBON DIOXIDE 33.5 mmol/L (21.0-32.0); CHLORIDE - SERUM 101 mmol/L (98-107); CREATININE - SERUM 0.7 mg/dL (0.6-1.3); GLUCOSE 282 mg/dL (74-106); POTASSIUM - SERUM 3.6 mmol/L (3.5-5.1); PROTEIN - SERUM 5.3 g/dL (6.4-8.2); SODIUM 130 mmol/L (136-145); UREA NITROGEN 24 mg/dL (7-18); eGFR NON AFRICAN AMERICAN 86 mL/min (90-120)
[2017-02-12 08:20] VITALS: BP 121/64
[2017-02-12 12:31] VITALS: BP 85/42
--- NOTE | 2017-02-12 12:39 | NUR ---
Nutrition follow-up: Diet: ADA consistent CHO PO intake 100% of most meals Labs reviewed +BM Wt: 270# RDN following.
--- NOTE | 2017-02-12 13:58 | NUR ---
RESP UL ON 40L VAPORTHERM AT 52%. IV PATENT. TELEMETRY CAF 68. DAUGHTER AT BS. CALL LIGHT IN REACH. WILL CONT. PLAN OF CARE.
[2017-02-12 16:40] VITALS: BP 117/68
--- NOTE | 2017-02-12 19:00 | NUR ---
RECEIVED REPORT AND ASSUMED PT CARE FROM DAY SHIFT NURSE @ THIS TIME.
[2017-02-12 20:00] VITALS: BP 122/75
--- NOTE | 2017-02-12 23:06 | NUR ---
PT REQUESTS RESTORIL AT THIS TIME FOR SLEEP. RESTORIL 15 MG PO GIVEN. WILL CONT TO MONITOR.
[2017-02-13 04:00] VITALS: BP 115/61
--- NOTE | 2017-02-13 07:30 | NUR ---
RECEIVED PT IN BED AAOX4 RESP UNLABORED PT ON VAPOTHERM 40 LPM DENIES ANY NEEDS OR DISCOMFORT
[2017-02-13 08:00] VITALS: BP 121/61
--- NOTE | 2017-02-13 11:12 | NUR ---
FSBS 232 HUMALOG 12 UNITS GIVEN SQ RT ARM
[2017-02-13 12:00] VITALS: BP 133/79
[2017-02-13 13:05] LABS: BASOPHILS 0.1 % (0-2); EOSINOPHILS 0 % (0-7); HEMATOCRIT 46.5 % (36.0-48.0); HEMOGLOBIN 15.2 g/dL (12-16); IMMATURE GRANULOCYTES 1.5 % (0-5); LYMPHOCYTES 5.8 % (15-50); MCH 30.3 pg (26.0-34.0); MCHC 32.7 g/dL (31.0-37.0); MCV 92.8 fL (80.0-100.0); MEAN PLATELET VOLUME 10.6 fL (7.4-10.4); NEUTROPHILS 88.6 % (40-80); PLATELET COUNT 195 10x3/uL (130-400); RBC 5.01 10x6/uL (4.00-5.40)
[2017-02-13 13:10] LABS: WBC 12.7 10x3/uL (4.8-10.8)
[2017-02-13 13:11] LABS: ANION GAP 9.9 mmol/L (8-16); CALCIUM 8.2 mg/dL (8.5-10.1); CARBON DIOXIDE 31.8 mmol/L (21.0-32.0); CREATININE - SERUM 0.8 mg/dL (0.6-1.3); POTASSIUM - SERUM 3.7 mmol/L (3.5-5.1)
--- NOTE | 2017-02-13 13:58 | NUR ---
Rehab Prescreening Consult recieved and the chart has been reviewed. She is a good IRF candidate but according to PT notes she has only had LE exercises with 50% assist for 8 minutes. Rehab will follow her to see if she is able to increase her therapy to determine if she can tolerate 3 hrs of therapy a day 5 days a week. Thank you for the referral. Ro Linton RN Clinical Liaison, Rehab
[2017-02-13 15:43] VITALS: BP 105/52
--- NOTE | 2017-02-13 17:00 | NUR ---
FSBS 290 HUMALOG 16 UNITS GIVEN SQ RT ARM
--- NOTE | 2017-02-13 19:00 | NUR ---
RECEIVED REPORT AND ASSUMED PT CARE FROM DAYSMDFT NURSE @ THIS TIME.
[2017-02-13 20:00] VITALS: BP 116/63
--- NOTE | 2017-02-13 20:30 | NUR ---
INITIAL ASSESSMENT COMPLETED, VSS, AFEBRILE. RESP LABORED WITH MINIMAL EXERTION. REMAINS WITH A CONT PULSE OX - PT IS ON A VAPOTHERM AT 40 LITERS AND 52% FIO2 - SATS APPROX 92%. DENIES ANY C/O PAIN. CONT TO HAVE 3+ PITTING BLE EDEMA. ON TELE, PT IS IN A CONTROLLED A-FIB WITH A HEART RATE AT 72. DAUGHTER AT BEDSIDE. CALL LIGHT WITHIN REACH. WILL CONT TO MONITOR.
[2017-02-14 04:00] VITALS: BP 117/68
[2017-02-14 05:54] LABS: BASOPHILS 0.1 % (0-2); EOSINOPHILS 0.2 % (0-7); HEMATOCRIT 44.7 % (36.0-48.0); HEMOGLOBIN 14.4 g/dL (12-16); IMMATURE GRANULOCYTES 1.3 % (0-5); LYMPHOCYTES 10.3 % (15-50); MCH 29.8 pg (26.0-34.0); MCHC 32.2 g/dL (31.0-37.0); MCV 92.5 fL (80.0-100.0); MEAN PLATELET VOLUME 10.8 fL (7.4-10.4); MONOCYTES 10.8 % (2-11); NEUTROPHILS 77.3 % (40-80); PLATELET COUNT 176 10x3/uL (130-400); RBC 4.83 10x6/uL (4.00-5.40); RDW 14.9 % (11.5-14.5); WBC 12.8 10x3/uL (4.8-10.8)
[2017-02-14 06:15] LABS: CALC OSMOLALITY 286 mosm/kg (275-300); CALCIUM 8.5 mg/dL (8.5-10.1); CARBON DIOXIDE 32.5 mmol/L (21.0-32.0); CHLORIDE - SERUM 103 mmol/L (98-107); CREATININE - SERUM 0.6 mg/dL (0.6-1.3); POTASSIUM - SERUM 3.8 mmol/L (3.5-5.1); SODIUM 141 mmol/L (136-145); UREA NITROGEN 23 mg/dL (7-18); eGFR NON AFRICAN AMERICAN > 90 mL/min (90-120)
[2017-02-14 06:16] LABS: GLUCOSE 126 mg/dL (74-106)
--- NOTE | 2017-02-14 07:30 | NUR ---
RECEIVED PT IN BED AAOX4 RESP UNLABORED O2 ON PER VAPOTHERM AT 40 LPM 62% DENIES ANY NEEDS OR DISCOMFORT
[2017-02-14 08:09] VITALS: BP 139/76
--- NOTE | 2017-02-14 11:49 | NUR ---
FSBS 183 HUMALOG 8 UNITS GIVEN SQ RT ARM
[2017-02-14 12:00] VITALS: BP 121/75
--- NOTE | 2017-02-14 16:49 | NUR ---
FSBS 309 HUMALOG 20 UNITS GIVEN SQ RT ARM
--- NOTE | 2017-02-14 19:00 | NUR ---
INITIAL ROUNDS MADE. PT SITTING UP IN BED WITH FAMILY IN ROOM. VAPOTHERM PER RT SETTINGS. PT DENIES NEEDS OR C/O AT THIS TIME. CALL LIGHT IN REACH. WILL CONT TO MONITOR.
[2017-02-14 20:00] VITALS: BP 106/58
[2017-02-15 04:00] VITALS: BP 109/62
[2017-02-15 05:52] LABS: BASOPHILS 0.1 % (0-2); EOSINOPHILS 0.4 % (0-7); HEMATOCRIT 41.4 % (36.0-48.0); HEMOGLOBIN 13.6 g/dL (12-16); IMMATURE GRANULOCYTES 1.2 % (0-5); LYMPHOCYTES 15.9 % (15-50); MCH 30.3 pg (26.0-34.0); MCHC 32.9 g/dL (31.0-37.0); MCV 92.2 fL (80.0-100.0); MEAN PLATELET VOLUME 10.8 fL (7.4-10.4); MONOCYTES 9.2 % (2-11); NEUTROPHILS 73.2 % (40-80); PLATELET COUNT 147 10x3/uL (130-400); RBC 4.49 10x6/uL (4.00-5.40); WBC 10.3 10x3/uL (4.8-10.8)
[2017-02-15 06:00] LABS: CALC OSMOLALITY 286 mosm/kg (275-300); CALCIUM 8.2 mg/dL (8.5-10.1); CARBON DIOXIDE 34.8 mmol/L (21.0-32.0); CHLORIDE - SERUM 103 mmol/L (98-107); CREATININE - SERUM 0.6 mg/dL (0.6-1.3); GLUCOSE 133 mg/dL (74-106); POTASSIUM - SERUM 3.7 mmol/L (3.5-5.1); SODIUM 141 mmol/L (136-145); UREA NITROGEN 23 mg/dL (7-18); eGFR NON AFRICAN AMERICAN > 90 mL/min (90-120)
[2017-02-15 09:13] VITALS: BP 120/69
--- NOTE | 2017-02-15 10:39 | NUR ---
UP TO CHAIR WITH PT ASSIST.
[2017-02-15 11:59] VITALS: BP 125/68
--- NOTE | 2017-02-15 12:43 | NUR ---
VAPORTHEM DC AND OXYMIZER APPLIED BY DR. PRATER. WILL MONITOR.
[2017-02-15 16:38] VITALS: BP 113/61
--- NOTE | 2017-02-15 21:24 | NUR ---
HS MEDS GIVEN. PT DOES NOT WANT A SLEEPING PILL TONIGHT. CONTINUOUS PULSE OX IN PLACE 98% O2 SAT ON 15L/OXIMISER. SEE ASSESSMENT. DAUGHTER AT BEDSIDE.
[2017-02-15 21:28] VITALS: BP 111/53
[2017-02-16 00:44] VITALS: BP 145/64
[2017-02-16 05:25] VITALS: BP 134/77
[2017-02-16 06:39] LABS: BASOPHILS 0.1 % (0-2); EOSINOPHILS 0.6 % (0-7); HEMATOCRIT 43.1 % (36.0-48.0); HEMOGLOBIN 14.1 g/dL (12-16); IMMATURE GRANULOCYTES 1.5 % (0-5); LYMPHOCYTES 15.8 % (15-50); MCH 30.1 pg (26.0-34.0); MCHC 32.7 g/dL (31.0-37.0); MCV 91.9 fL (80.0-100.0); MEAN PLATELET VOLUME 10.5 fL (7.4-10.4); PLATELET COUNT 132 10x3/uL (130-400); RBC 4.69 10x6/uL (4.00-5.40); RDW 15.1 % (11.5-14.5); WBC 12.4 10x3/uL (4.8-10.8)
[2017-02-16 06:54] LABS: CALC OSMOLALITY 280 mosm/kg (275-300); CALCIUM 8.4 mg/dL (8.5-10.1); CARBON DIOXIDE 34.2 mmol/L (21.0-32.0); CHLORIDE - SERUM 101 mmol/L (98-107); CREATININE - SERUM 0.6 mg/dL (0.6-1.3); GLUCOSE 100 mg/dL (74-106); POTASSIUM - SERUM 3.4 mmol/L (3.5-5.1); SODIUM 140 mmol/L (136-145); UREA NITROGEN 19 mg/dL (7-18); eGFR NON AFRICAN AMERICAN > 90 mL/min (90-120)
[2017-02-16 08:00] VITALS: BP 100/95
--- NOTE | 2017-02-16 10:00 | NUR ---
RESP UL ON OXIMIZER. TELEMETRY CAF. UP TO HALLWAY AMBULATING WITH PT ASSIST.
[2017-02-16 12:00] VITALS: BP 111/48; BP 114/51
[2017-02-16 16:00] VITALS: BP 104/62
--- NOTE | 2017-02-16 19:00 | NUR ---
INITIAL ROUNDS MADE. PT SITTING UP IN BED WITH DAUGHTER AT BEDSIDE. DISCUSSED PLAN OF CARE, NO NEEDS OR C/O VOICED AT THIS TIME. CALL LIGHT IN REACH. WILL CONT TO MONITOR.
[2017-02-16 21:41] VITALS: BP 113/63
--- NOTE | 2017-02-17 03:03 | NUR ---
RESTING WELL WITH EYES CLOSED, CONT TO MONITOR.
[2017-02-17 05:36] VITALS: BP 114/57
[2017-02-17 06:57] LABS: BASOPHILS 0 % (0-2); EOSINOPHILS 0.7 % (0-7); HEMATOCRIT 41.2 % (36.0-48.0); HEMOGLOBIN 13.6 g/dL (12-16); IMMATURE GRANULOCYTES 1.3 % (0-5); LYMPHOCYTES 12.9 % (15-50); MCH 30.1 pg (26.0-34.0); MCV 91.2 fL (80.0-100.0); MEAN PLATELET VOLUME 10.6 fL (7.4-10.4); MONOCYTES 9.2 % (2-11); NEUTROPHILS 75.9 % (40-80); PLATELET COUNT 122 10x3/uL (130-400); RBC 4.52 10x6/uL (4.00-5.40); RDW 15.2 % (11.5-14.5)
[2017-02-17 07:27] LABS: CALC OSMOLALITY 280 mosm/kg (275-300); CALCIUM 8.5 mg/dL (8.5-10.1); CARBON DIOXIDE 33.5 mmol/L (21.0-32.0); CHLORIDE - SERUM 101 mmol/L (98-107); CREATININE - SERUM 0.7 mg/dL (0.6-1.3); GLUCOSE 100 mg/dL (74-106); MAGNESIUM - SERUM 1.4 mg/dL (1.8-2.4); PHOSPHOROUS 3.6 mg/dL (2.5-4.9); POTASSIUM - SERUM 3.8 mmol/L (3.5-5.1); SODIUM 140 mmol/L (136-145); THYROID STIMULATING HORMONE 0.47 uIU/mL (0.36-3.74); UREA NITROGEN 19 mg/dL (7-18); eGFR NON AFRICAN AMERICAN 86 mL/min (90-120)
[2017-02-17 08:00] VITALS: BP 105/60
--- NOTE | 2017-02-17 09:36 | NUR ---
UP TO AMBULATE WITH PT ASSIST. TELEMETRY CAF. RESP UL ON 02 13L OXIMIZER. DAUGHTER AT BS. WILL CONT. PLAN OF CARE.
[2017-02-17 12:00] VITALS: BP 112/76
--- NOTE | 2017-02-17 15:05 | NUR ---
UP TO AMBULATE WITH PT ASSIST.
[2017-02-17 19:00] VITALS: BP 113/56
--- NOTE | 2017-02-17 20:00 | NUR ---
RESUMED CARE OF PT, LYING IN BED RESPIRATIONS EVEN AND UNLABORED ON 13LPM VIA OXYMIZER. 87 CAF ON TELEMETRY. LEFT HAND SALINE LOCKED. CALL LIGHT IN REACH. SEE NURSE ASSESSMENT.
[2017-02-18] VITALS: BP 116/65
--- NOTE | 2017-02-18 03:11 | NUR ---
RELIABILITY TECHNICIAN AT BEDSIDE TO OBTAIN VITALS, CALL LIGHT IN REACH. WILL CONTINUE TO MONITOR.
[2017-02-18 05:06] LABS: BASOPHILS 0.1 % (0-2); EOSINOPHILS 0.6 % (0-7); HEMATOCRIT 40.8 % (36.0-48.0); HEMOGLOBIN 13.3 g/dL (12-16); LYMPHOCYTES 11.7 % (15-50); MCH 29.9 pg (26.0-34.0); MCHC 32.6 g/dL (31.0-37.0); MCV 91.7 fL (80.0-100.0); MEAN PLATELET VOLUME 10.9 fL (7.4-10.4); MONOCYTES 8.6 % (2-11); PLATELET COUNT 125 10x3/uL (130-400); RBC 4.45 10x6/uL (4.00-5.40); RDW 15.1 % (11.5-14.5); WBC 9.9 10x3/uL (4.8-10.8)
[2017-02-18 05:27] LABS: ANION GAP 7.5 mmol/L (8-16); CALCIUM 8.5 mg/dL (8.5-10.1); CARBON DIOXIDE 35.2 mmol/L (21.0-32.0); CREATININE - SERUM 0.8 mg/dL (0.6-1.3); POTASSIUM - SERUM 3.7 mmol/L (3.5-5.1)
--- NOTE | 2017-02-18 06:38 | NUR ---
NO CHANGES FROM PREVIOUS ASSESSMET, CALL LIGHT IN REACH. WILL CONTINUE TO MONITOR.
--- NOTE | 2017-02-18 07:30 | NUR ---
RECEIVED PT IN BED EYES CLOSED RESP UNLABORED NAD NOTED
[2017-02-18 08:15] VITALS: BP 121/64
--- NOTE | 2017-02-18 11:57 | NUR ---
FSBS 176 HUMALOG 8 UNITS GIVEN SQ RT ARM
[2017-02-18 13:09] VITALS: BP 104/52
--- NOTE | 2017-02-18 16:19 | NUR ---
FSBS 291 HUMALOG 16 UNITS GIVEN SQ LT ARM
[2017-02-18 16:26] VITALS: BP 107/61
--- NOTE | 2017-02-18 19:43 | NUR ---
RESUMED CARE OF PT, LYING IN BED RESPIRATIONS EVEN AND UNLABORED ON 13 LPM VIA OXYMIZER. LEFT HAND SALINE LOCKED. NO NEEDS AT THIS TIME. CALL LIGHT IN REACH. SEE NURSE ASSESSMENT. WILL CONTINUE TO MONITOR.
[2017-02-18 20:00] VITALS: BP 98/59
[2017-02-19] VITALS: BP 113/58
[2017-02-19 04:00] VITALS: BP 107/62
[2017-02-19 05:30] LABS: ANION GAP 7.8 mmol/L (8-16); CALCIUM 8.5 mg/dL (8.5-10.1); CARBON DIOXIDE 33.8 mmol/L (21.0-32.0); CREATININE - SERUM 0.8 mg/dL (0.6-1.3); POTASSIUM - SERUM 3.6 mmol/L (3.5-5.1)
--- NOTE | 2017-02-19 07:07 | NUR ---
AM ROUNDS- PT IN BED, DENIES ANY NEEDS AT THIS TIME. BED LOW AND WHEELS LOCKED, BED SIDE RAILX2, CALL LIGHT IN REACH, DAUGTHER AT BEDSIDE, NAD NOTED, WILL CONTINUE TO MONITOR.
[2017-02-19 08:20] VITALS: BP 96/59
--- NOTE | 2017-02-19 08:49 | NUR ---
AM MEDS GIVEN AT THIS TIME, BP OF 96/59, MEDS THAT WILL BRING BP DOWN HELD AT THIS TIME. PT IN BED, DENIES ANY NEEDS AT THIS TIME. CALL LIGHT IN REACH, DAUGTHER AT BEDSIDE, NAD NOTED, WILL CONTINUE TO MONITOR.
--- NOTE | 2017-02-19 11:04 | NUR ---
BLOOD SUGAR OF 124, NO COVERAGE NEEDED PER S/S. PT IN BED, DENIES ANY NEEDS AT THIS TIME. CALL LIGHT IN REACH, NAD NOTED, WILL CONTINUE TO MONITOR.
[2017-02-19 12:35] VITALS: BP 94/60
--- NOTE | 2017-02-19 13:04 | NUR ---
Nutrition follow-up: Diet: ADA consistent CHO PO intake 100% of most meals labs reviewed +BM Wt: 258# RDN following.
--- NOTE | 2017-02-19 13:07 | NUR ---
PT IN BED, DENIES ANY NEEDS AT THIS TIME. CALL LIGHT IN REACH, NAD NOTED, WILL CONTINUE TO MONITOR.
[2017-02-19 15:06] VITALS: BP 121/63
--- NOTE | 2017-02-19 16:24 | NUR ---
BLOOD SUGAR OF 282, 16UNITS OF HUMALOG GIVEN PER S/S. PT DENIES ANY NEEDS AT THIS TIME. CALL LIGHT IN REACH, NAD NOTED, WILL CONTINUE TO MONITOR.
[2017-02-19 20:00] VITALS: BP 109/58
[2017-02-20] VITALS: BP 111/61
[2017-02-20 04:00] VITALS: BP 115/61
[2017-02-20 05:30] LABS: BASOPHILS 0 % (0-2); EOSINOPHILS 0.4 % (0-7); HEMATOCRIT 39.6 % (36.0-48.0); IMMATURE GRANULOCYTES 1.2 % (0-5); MCH 30.2 pg (26.0-34.0); MCHC 32.8 g/dL (31.0-37.0); MCV 91.9 fL (80.0-100.0); MEAN PLATELET VOLUME 11.3 fL (7.4-10.4); MONOCYTES 6.7 % (2-11); NEUTROPHILS 78.7 % (40-80); PLATELET COUNT 103 10x3/uL (130-400); RBC 4.31 10x6/uL (4.00-5.40); RDW 15.2 % (11.5-14.5); WBC 9.5 10x3/uL (4.8-10.8)
[2017-02-20 05:50] LABS: ANION GAP 11.1 mmol/L (8-16); CALCIUM 8.9 mg/dL (8.5-10.1); CARBON DIOXIDE 30.8 mmol/L (21.0-32.0); CREATININE - SERUM 0.8 mg/dL (0.6-1.3); MAGNESIUM - SERUM 1.5 mg/dL (1.8-2.4); PHOSPHOROUS 4.2 mg/dL (2.5-4.9); POTASSIUM - SERUM 3.9 mmol/L (3.5-5.1)
[2017-02-20 08:04] VITALS: BP 121/71
--- NOTE | 2017-02-20 09:45 | NUR ---
RESP UL ON 02 7L OXIMIZER. DAUGHTER AT BS. CALL LIGHT IN REACH. WILL MONITOR NEEDS.
--- NOTE | 2017-02-20 11:15 | NUR ---
UP AMBULATING HALLWAY WITH PT ASSIST.
[2017-02-20 12:00] VITALS: BP 105/64
[2017-02-20 16:00] VITALS: BP 129/69
[2017-02-20 20:00] VITALS: BP 120/63
[2017-02-21 02:00] VITALS: BP 117/67
[2017-02-21 04:00] VITALS: BP 133/81
[2017-02-21 05:30] LABS: BASOPHILS 0.1 % (0-2); EOSINOPHILS 0.7 % (0-7); HEMATOCRIT 42.5 % (36.0-48.0); IMMATURE GRANULOCYTES 1.4 % (0-5); LYMPHOCYTES 16.5 % (15-50); MCH 29.8 pg (26.0-34.0); MCHC 32.9 g/dL (31.0-37.0); MCV 90.4 fL (80.0-100.0); MEAN PLATELET VOLUME 11.1 fL (7.4-10.4); MONOCYTES 7.1 % (2-11); NEUTROPHILS 74.2 % (40-80); PLATELET COUNT 108 10x3/uL (130-400); RDW 15.3 % (11.5-14.5); WBC 10.7 10x3/uL (4.8-10.8)
[2017-02-21 05:41] LABS: ANION GAP 12.8 mmol/L (8-16); CALCIUM 8.9 mg/dL (8.5-10.1); CARBON DIOXIDE 31.7 mmol/L (21.0-32.0); CREATININE - SERUM 0.8 mg/dL (0.6-1.3); POTASSIUM - SERUM 3.5 mmol/L (3.5-5.1)
[2017-02-21 08:19] VITALS: BP 127/78
--- NOTE | 2017-02-21 09:09 | NUR ---
RESP UL ON 02 4L OXIMIZER. DAUGHTER AT BS ASSISTING WITH NEEDS. CALL LIGHT IN REACH. WILL CONT. PLAN OF CARE.
--- NOTE | 2017-02-21 11:03 | NUR ---
UP AMBULATING WITH PT ASSIST.
[2017-02-21 15:12] VITALS: BP 121/68
--- NOTE | 2017-02-21 19:00 | NUR ---
INITIAL ROUNDS MADE. PT SITTING UP IN BED WITH FAMILY IN ROOM. DENIES NEEDS OR C/O AT THIS TIME. RT IN ROOM FOR SCHEDULED UPD. CALL LIGHT IN REACH. WILL CONT TO MONITOR.
--- NOTE | 2017-02-21 23:39 | NUR ---
INHALATION THERAPIST AT BEDSIDE FOR VS. NEEDS ADDRESSED AT THIS TIME. CALL LIGHT IN REACH. WILL CONT TO MONITOR.
[2017-02-22] VITALS: BP 98/59
[2017-02-22 04:00] VITALS: BP 106/62
[2017-02-22 06:10] LABS: BASOPHILS 0.1 % (0-2); HEMATOCRIT 39.1 % (36.0-48.0); HEMOGLOBIN 13.1 g/dL (12-16); IMMATURE GRANULOCYTES 0.9 % (0-5); LYMPHOCYTES 20.9 % (15-50); MCH 30.2 pg (26.0-34.0); MCHC 33.5 g/dL (31.0-37.0); MCV 90.1 fL (80.0-100.0); MEAN PLATELET VOLUME 11.1 fL (7.4-10.4); MONOCYTES 5.3 % (2-11); NEUTROPHILS 71.8 % (40-80); PLATELET COUNT 90 10x3/uL (130-400); RBC 4.34 10x6/uL (4.00-5.40); RDW 15.4 % (11.5-14.5); WBC 9.1 10x3/uL (4.8-10.8)
[2017-02-22 06:25] LABS: ANION GAP 11.4 mmol/L (8-16); CARBON DIOXIDE 31.3 mmol/L (21.0-32.0); CREATININE - SERUM 0.8 mg/dL (0.6-1.3); MAGNESIUM - SERUM 1.4 mg/dL (1.8-2.4); PHOSPHOROUS 4.6 mg/dL (2.5-4.9); POTASSIUM - SERUM 3.7 mmol/L (3.5-5.1)
[2017-02-22 06:36] LABS: PLATELET ESTIMATE DECREASED
[2017-02-22 06:58] LABS: APTT 27.5 SECONDS (22.8-39.4); D-DIMER-QUANTITATIVE 0.33 ug/mLFEU (0.20-0.54)
[2017-02-22 06:59] LABS: INR 0.97 (0.85-1.17); PROTIME 12.7 SECONDS (11.6-15.0)
--- NOTE | 2017-02-22 07:30 | NUR ---
RECEIVED PT SITTING UP IN CHAIR RESP UNLABORED NAD NOTED DENIES ANY NEEDS
[2017-02-22 07:55] VITALS: BP 93/50
--- NOTE | 2017-02-22 11:04 | NUR ---
Patient Name: ANGELY TOLENTINO Encounter No: [id number] : 1940 Primary Insurance: MEDICARE A & B Anticipated DC Date: 02-22-2017 Planned Disposition: Inpatient Rehab External Planned Provider: [facility] DCP follow-up note: CM RECEIVED ORDER FOR INPATIENT REHAB, TO FIND OUT IF PT CAN GO ON 6L OXYMIZER. CM CALLED AND SPOKE TO DINA OF [facility] WHO INFORMED CM THAT PT CAN COME TO INPATIENT REHAB ON 6L OXYMIZER LONG SHE IS NOT DESATING WITH THERAPY. INPATIENT REHAB PLANS TO ACCEPT WHEN STABLE. CM MET WITH PT AND DAUGHTER IN ROOM, BOTH IN AGREEMENT WITH DISCHARGE PLAN TO INPATIENT REHAB AT [place]. IMPORTANT MESSAGE FROM MEDICARE PROVIDED AND EXPLAINED. WHEN DISCHARGE ORDER IS RECEIVED, NOTIFY [facility] FOR BED ASSIGNMENT. Marcos Saenz, CASE MANAGEMENT
--- NOTE | 2017-02-22 11:50 | NUR ---
FSBS 241 HUMALOG 12 UNITS GIVE SQ RT ARM
[2017-02-22 12:50] VITALS: BP 94/49
[2017-02-22] MEDS ORDERED: BROVANA15 MCG/2 M INH (13:04)
[2017-02-22] MEDS ORDERED: ATROVENT 0.02%2.5 ML UPD (13:05)
[2017-02-22] MEDS ORDERED: XOPENEX 0.0.63 MG/3 UPD (13:05)
[2017-02-22] MEDS ORDERED: REVATIO20 MG PO (13:06)
[2017-02-22] MEDS ORDERED: NORVASC5 MG PO (13:06)
[2017-02-22] MEDS ORDERED: DIOVAN80 MG PO (13:07)
[2017-02-22] MEDS ORDERED: K-DUR20 MEQ PO (13:11)
[2017-02-22] MEDS ORDERED: LASIX40 MG PO (13:11)
[2017-02-22] MEDS ORDERED: RESTORIL15 MG PO (13:11)
[2017-02-22] MEDS ORDERED: TESSALON PERLE100 MG PO (13:12)
[2017-02-22] MEDS ORDERED: MUCINEX DM ER1 EAC1 PO (13:12)
[2017-02-22] MEDS ORDERED: HUMALOG 30100 UNITS/ SC (13:12)
[2017-02-22] MEDS ORDERED: PULMICORT0.5 MG/21 UPD (13:12)
[2017-02-22] MEDS ORDERED: PREDNISONE20 MG PO (13:15)
--- NOTE | 2017-02-22 14:38 | NUR ---
Wound care consult: Pt has no open wounds. BLE are edematous. Pt states she will have the nurse call wound care if she notices any "ulcers".
--- NOTE | 2017-02-22 16:10 | NUR ---
PT HAS BEEN HYPOTENSIVE TODAY. BP TAKEN MANUALLY AND RESULTS ARE 89/58. MARY YOO CALLED AND ORDERS TO KEEP PATIENT OVER NIGHT RECEIVED. PATIENT NOT TO GO TO REHAB UNTIL AM. REHAB CALLED AND NOTIFIED. WILL CONTINUE TO MONITOR.
[2017-02-22 16:27] VITALS: BP 94/51
--- NOTE | 2017-02-22 19:00 | NUR ---
INITIAL ROUNDS MADE. PT SITTING UP IN BED WITH FAMILY IN ROOM. DENIES NEEDS OR C/O AT THIS TIME. REPOSITIONED FOR COMFORT. RT ARM ELEVATED ON 2 PILLOWS FOR SWELLING. CALL LIGHT IN REACH. WILL CONT TO MONITOR.
--- NOTE | 2017-02-22 19:00 | NUR ---
INITIAL ROUNDS MADE. PT SITTING UP IN CHAIR WITH FAMILY IN ROOM. AAO X3. DENIES NEEDS OR C/O AT THIS TIME. RT IN ROOM FOR SCHEDULED UPD. CALL LIGHT IN REACH, WILL CONT TO MONITOR.
[2017-02-22 23:00] VITALS: BP 88/57
--- NOTE | 2017-02-22 23:48 | NUR ---
DEBURRING AND TOOLING MACHINE OPERATOR AT BEDSIDE FOR VS. NEEDS ADDRESSED AT THIS TIME. CALL LIGHT IN REACH. WILL CONT TO MONITOR.
[2017-02-23 01:51] VITALS: BP 101/56
--- NOTE | 2017-02-23 04:44 | NUR ---
RESTING WELL WITH EYES CLOSED, CALL LIGHT IN REACH. WILL CONT TO MONITOR.
[2017-02-23 05:11] LABS: BASOPHILS 0.1 % (0-2); EOSINOPHILS 0.9 % (0-7); HEMATOCRIT 40.4 % (36.0-48.0); HEMOGLOBIN 13.3 g/dL (12-16); IMMATURE GRANULOCYTES 0.6 % (0-5); LYMPHOCYTES 14.2 % (15-50); MCH 30.1 pg (26.0-34.0); MCHC 32.9 g/dL (31.0-37.0); MCV 91.4 fL (80.0-100.0); MEAN PLATELET VOLUME 11.8 fL (7.4-10.4); MONOCYTES 6.3 % (2-11); NEUTROPHILS 77.9 % (40-80); PLATELET COUNT 101 10x3/uL (130-400); RBC 4.42 10x6/uL (4.00-5.40); RDW 15.7 % (11.5-14.5); WBC 9.6 10x3/uL (4.8-10.8)
[2017-02-23 05:26] LABS: ANION GAP 11.3 mmol/L (8-16); CALCIUM 8.8 mg/dL (8.5-10.1); CARBON DIOXIDE 31.4 mmol/L (21.0-32.0); CREATININE - SERUM 0.8 mg/dL (0.6-1.3); POTASSIUM - SERUM 3.7 mmol/L (3.5-5.1)
[2017-02-23 05:36] VITALS: BP 113/67
--- NOTE | 2017-02-23 07:30 | NUR ---
RECEIVED PT IN BED AAOX4 RESP UNLABORED OXIMIZER ON AT 4 LPM DENIES ANY NEEDS OR DISCOMFORT NAD NOTED
[2017-02-23 08:00] VITALS: BP 109/70
[2017-02-23] MEDS ORDERED: NORVASC5 MG PO (11:35)
[2017-02-23] MEDS ORDERED: DIOVAN80 MG PO (11:35)
[2017-02-23 11:55] VITALS: BP 91/55
--- NOTE | 2017-02-23 11:56 | NUR ---
FSBS 218 HUMALOG 12 UNITS GIVEN SQ RT ARM
--- NOTE | 2017-02-23 12:14 | NUR ---
REPORT CALLED TO CATIE MOSS
--- NOTE | 2017-02-23 14:30 | NUR ---
PT DISCHARGED TO REHAB TRANSFERED BY W/C IN STABLE CONDITION WITH ALL PERSONAL BELONGINGS COPY OF DISCHARGE GIVEN
== END 2017-02-23 14:30 | DRG 189 ==
LOC: D.M2 15:29 → D.MS 15:29 → D.M2 02-09 15:58
PROVIDERS: Emergency Medicine; Family Medicine; Internal Medicine Pulmonary Disease; ADMIT Family Medicine
DX: J96.01 Acute respiratory failure with hypoxia (principal); J18.9 Pneumonia, unspecified organism; J44.0 Chronic obstructive pulmonary disease with (acute) lower respiratory infection; K21.9 Gastro-esophageal reflux disease without esophagitis; I48.91 Unspecified atrial fibrillation; I10 Essential (primary) hypertension; E11.65 Type 2 diabetes mellitus with hyperglycemia; Z79.84 Long term (current) use of oral hypoglycemic drugs; G47.00 Insomnia, unspecified; E87.6 Hypokalemia; Z66 Do not resuscitate; I87.8 Other specified disorders of veins; I27.2 Other secondary pulmonary hypertension; I08.1 Rheumatic disorders of both mitral and tricuspid valves

== ENCOUNTER 2017-02-23 14:37 | Inpatient (IN) | payer MEDICARE, OTHER ==
[~2017-02-23] VITALS: Ht 160 cm; Wt 102.5 kg
[~2017-02-23 14:37] MED LIST: ATROVENT 0.02%2.5 ML UPD; BAYER CHEWABLE81 MG PO; BROVANA15 MCG/2 M INH; CATAPRES0.2 MG PO; DIOVAN80 MG PO; EXFORGE HCT 101 EAC2 PO; GLUCOVANCE 2.5-1 TAB PO; HUMALOG 30100 UNITS/ SC; IPRAT-ALBUT 0.5-3 ML UPD; K-DUR20 MEQ PO; LASIX40 MG PO; LEVAQUIN500 MG PO; MIDRIN1 CA1; MUCINEX DM ER1 EAC1 PO; NORVASC5 MG PO; OMEPRAZOLE40 MG PO; PREDNISONE20 MG PO; PULMICORT0.5 MG/21 UPD; RESTORIL15 MG PO; REVATIO20 MG PO; TESSALON PERLE100 MG PO; XOPENEX 0.0.63 MG/3 UPD; ZIAC 5-6.25 MG1 TAB PO; [UNRECOGNIZED DRUG - OTHER] IM
[2017-02-23 15:10] VITALS: BP 113/59; BMI 42.3
--- NOTE | 2017-02-23 18:23 | NUR ---
PT RESTING IN BED DAUGHTER IN ROOM CALL LIGHT IN REACH WILL MONITER
[2017-02-23 19:05] VITALS: BP 102/60
--- NOTE | 2017-02-23 19:30 | NUR ---
INTRODUCED MYSELF TO PATIENT AND VERIFIED SHE HAS NO CURRENT NEEDS. TOLD HER I WILL RETURN LATER TO DELIVER HER MEDICATIONS.
--- NOTE | 2017-02-23 21:00 | NUR ---
PATIENT IN BED. DENIES CURRENT NEEDS. DAUGHTER JUST ARRIVED AND IS ATTENDING TO PATIENTS COMFORT NEEDS. TOLD PATIENT I WILL RETURN AFTER DAUGHTER' VISIT.
--- NOTE | 2017-02-23 22:05 | NUR ---
ASSESSMENT AND HS MEDS COMPLETE. FSBS 74. GAVE PATIENT HS SNACK OF 8 OZS 2% MILK AND 6 DANIE CRAX SQUARES TO SUPPORT BLOOD SUGAR THROUGH THE NIGHT. DENIES FURTHER NEEDS.
--- NOTE | 2017-02-24 00:15 | NUR ---
RESTING QUIETLY, EYES CLOSED. APPARENTLY JUST SLEPT THROUGH HER RESPIRATORY UPDRAFT. RETURNED RESTORIL 15MG TO XIS THAT I HAD EARLIER PULLED AND THAT SHE SAID SHE WOULD WANT AFTER BEING AWAKENED FOR HER UPDRAFT BETWEEN MIDNIGHT AND 0100 HRS.
--- NOTE | 2017-02-24 02:00 | NUR ---
ASSISTED PATIENT UP TO BR, AMBULATING SBA WITH R/W. URINATED AT COMMODE AND THEN WAS ASSISTED TO AMBULATE BACK TO BED. DENIES NEEDS.
--- NOTE | 2017-02-24 04:45 | NUR ---
IN BED, AWAKE. WATCHING TV. NO COMPLAINTS AT THIS TIME.
[2017-02-24 05:27] LABS: BASOPHILS 0.1 % (0-2); EOSINOPHILS 1.1 % (0-7); HEMATOCRIT 41.7 % (36.0-48.0); HEMOGLOBIN 13.7 g/dL (12-16); IMMATURE GRANULOCYTES 0.8 % (0-5); MCHC 32.9 g/dL (31.0-37.0); MCV 91.4 fL (80.0-100.0); MEAN PLATELET VOLUME 10.8 fL (7.4-10.4); MONOCYTES 5.4 % (2-11); NEUTROPHILS 74.6 % (40-80); PLATELET COUNT 86 10x3/uL (130-400); RBC 4.56 10x6/uL (4.00-5.40); RDW 15.7 % (11.5-14.5); WBC 10.3 10x3/uL (4.8-10.8)
[2017-02-24 05:46] LABS: ANION GAP 10.2 mmol/L (8-16); CALCIUM 9.1 mg/dL (8.5-10.1); CARBON DIOXIDE 30.7 mmol/L (21.0-32.0); CREATININE - SERUM 0.8 mg/dL (0.6-1.3); POTASSIUM - SERUM 3.9 mmol/L (3.5-5.1)
--- NOTE | 2017-02-24 06:05 | NUR ---
ASSISTED PATIENT UP TO BR TO URINATE AND CHANGE HER UNDERWEAR. THEN RETURNED HER TO BED AND DELIVERED SCHEDULED PROTONIX PO. FLUSHED LEFT HAND S/L. STANDING WEIGHT IS 233 LBS AND 12 OZS.
[2017-02-24 08:00] VITALS: BP 123/68
--- NOTE | 2017-02-24 08:00 | NUR ---
PATIENT ALERT/ORIENT. DAUGHTER IN ROOM. OXIMIZER AT 4L. CALL LIGHT WITHIN REACH. VOICES NO NEEDS AT THIS TIME
--- NOTE | 2017-02-24 08:00 | NUR ---
EATING BREAKFAST.DENIES NEEDS.CL IN REACH.
--- NOTE | 2017-02-24 10:19 | NUR ---
OCCUPATIONAL THERPIST WORKING WITH PATIENT IN REHAB ROOM. VOICES NO PAIN/DISC AT THIS TIME
[2017-02-24 10:51] VITALS: Ht 160 cm; Wt 102.5 kg
--- NOTE | 2017-02-24 14:06 | NUR ---
SALINE LOCK TO LEFT HAND REMOVED. PATIENT DOES NOT HAVE ANY IV MEDICATIONS.
--- NOTE | 2017-02-24 14:22 | NUR ---
OCCUPATIONAL THERAPIST WORKING WITH PATIENT. PATIENT GETTING A SHOWER.
--- NOTE | 2017-02-24 14:46 | NUR ---
RESPITORY THERPAIST TURNED DOWN PATIENTS OXIMIZER FROM 5L TO 4L. WILL CONTINUE TO MONITOR PULSE OX.
--- NOTE | 2017-02-24 16:47 | NUR ---
PATIENT ADMITTED TO REHAB FROM ACUTE FLOOR. HER PCP IS DR. CLEMONS AND HER PHARMACY IS [facility] [address]. SHE STATES THAT HER DUAGHTER LIVES WITH HER AND SHE WILL ASSIST HER AT DISCHARGE. SHE HAS A WALKER AND GLUCOMETER . PATIENT IS NEW TO UNIT AND WILL BE RA AT NEXT MEETING. WILL CONTINUE TO FOLLOW WITH HER.
--- NOTE | 2017-02-24 17:00 | NUR ---
GLUCOSE LEVEL 301. TWENTY UNITS OF SLIDING SCALE INSULIN GIVEN.
[2017-02-24 19:00] VITALS: BP 94/55
--- NOTE | 2017-02-24 20:40 | NUR ---
DAUGHTER IS AT BED SIDE, AND TALK TO PT.
--- NOTE | 2017-02-25 03:26 | NUR ---
PT RESTING HOB ELEVATED 30 DEGREES, OXIMIZER IN CORRECT POSITION ON FACE, RESPIRATIONS REGULAR AND UNLABORED. NO S/S OF ACUTE DISTRESS.
--- NOTE | 2017-02-25 04:06 | NUR ---
REST QUIETLY IN BED, EYE CLOSE, BED LOW, CALL LIGHT WITHIN REACH.
--- NOTE | 2017-02-25 08:33 | NUR ---
PT AM MEDS ADMINISTERES. PT DENIES NEEDS. WCTM.
[2017-02-25 08:42] VITALS: BP 114/70
--- NOTE | 2017-02-25 17:08 | NUR ---
PT SITTING UP IN WC, WAITING FOR DINNER. FAMILY VISITNG IN ROOM. DENIES NEEDS. WCTM.
[2017-02-25 18:59] VITALS: BP 97/48
--- NOTE | 2017-02-25 19:20 | NUR ---
PT. SITTING UP IN W/C AND REQUESTED HER B/P BE RETAKEN IT WAS A LITTLE LOW WHEN THE FILLING STATION LABORER TOOK IT. B/P IN LUE WAS 66/43. TOOK B/P IN RUE AND IT WAS 86/56. PT. IS ASYMPTOMATIC AND STATES SHE FEELS FINE. ASSESSMENT COMPLETED AND PT. WOULD LIKE TO REMAIN UP IN HER W/C SHE IS READING AN ELECTRONIC BOOK. PT. HAS HER CALL LIGHT WITHIN REACH AND HAS NO VOICED NEEDS.
--- NOTE | 2017-02-25 23:15 | NUR ---
PT. IN BED WITH HOB UP FOR COMFORT WITH EYES CLOSED AND RESP. EVEN. OXIMIZER O2 VIA N/C ON AT 4L/MIN WITHOUT ANY S/S DISTRESS. CALL LIGHT WITHIN REACH AND PT'S DAUGHTER GETTING READY TO LEAVE.
--- NOTE | 2017-02-26 03:12 | NUR ---
PT. IN BED WITH HOB UP FOR COMFORT AND IS AWAKE AND WATCHING TV. PT. DENIES ANY NEEDS AT THIS TIME AND HAS HER CALL LIGHT WITHIN REACH. NASAL OXIMIZER ON AT 4L/MIN WITHOUT ANY S/S DISTRESS OBSERVED.
--- NOTE | 2017-02-26 04:45 | NUR ---
B/P RECHECKED THIS MORNING AND IT IS 102/62.
--- NOTE | 2017-02-26 05:30 | NUR ---
FSBS 66 AFTER SHE HAD HER PM SNACK OF DANIE CRACKERS AND MILK LAST NIGHT. PT. REQUESTED MORE DANIE CRACKERS AND MILK SHE DOESN'T LIKE JUICE. PT. CONSUMED 100% AT EACH TIME.
[2017-02-26 06:02] LABS: BASOPHILS 0.1 % (0-2); EOSINOPHILS 1.6 % (0-7); HEMATOCRIT 42.2 % (36.0-48.0); HEMOGLOBIN 13.8 g/dL (12-16); IMMATURE GRANULOCYTES 0.6 % (0-5); LYMPHOCYTES 20.8 % (15-50); MCH 30.1 pg (26.0-34.0); MCHC 32.7 g/dL (31.0-37.0); MCV 92.1 fL (80.0-100.0); MEAN PLATELET VOLUME 10.5 fL (7.4-10.4); MONOCYTES 7.3 % (2-11); NEUTROPHILS 69.6 % (40-80); RBC 4.58 10x6/uL (4.00-5.40); RDW 16.1 % (11.5-14.5); WBC 8.9 10x3/uL (4.8-10.8)
[2017-02-26 06:03] LABS: PLATELET COUNT 105 10x3/uL (130-400)
[2017-02-26 06:06] LABS: ANION GAP 12.2 mmol/L (8-16); CARBON DIOXIDE 30.8 mmol/L (21.0-32.0); CREATININE - SERUM 0.9 mg/dL (0.6-1.3)
[2017-02-26 08:04] VITALS: BP 114/59
--- NOTE | 2017-02-26 08:55 | NUR ---
PT AM MEDS ADMINISTERED. PT DENIES FURTHER NEEDS. WCTM.
--- NOTE | 2017-02-26 11:48 | NUR ---
PT FSBS 164. PT GIVEN 8 UNITS SS INSULIN. PT DENIES NEEDS. WCTM.
--- NOTE | 2017-02-26 15:24 | NUR ---
PT RESTING IN ROOM. SABRINA CALHOUN. WCTM.
--- NOTE | 2017-02-26 16:33 | NUR ---
PT FSBS 247. PT GIVEN 12 UNITS SS INSULIN. PT SITTING UP IN WC TALKING TO DAUGHTER, SABRINA NEEDS. WCTM.
--- NOTE | 2017-02-26 19:30 | NUR ---
SITTING UP AT BEDSIDE IN W/C. DENIES NEEDS.
--- NOTE | 2017-02-26 20:25 | NUR ---
CONTINUES UP IN W/C AT PRESENT. DENIES NEEDS.
[2017-02-26 22:15] VITALS: BP 104/71
--- NOTE | 2017-02-26 22:15 | NUR ---
DAUGHTER HERE ASSISTING PATIENT TO READY FOR BED. ASSESSMENT AND HS MEDS COMPLETE. HELD ZIAC, CLONIDINE, AND SILDENAFIL DOSES, FOR LOW SBP OF 104/71. HAS STANDING ORDER FROM MD TO HOLD BP MEDS FOR SBP <110.
--- NOTE | 2017-02-27 00:10 | NUR ---
RESTING QUIETLY IN BED, EYES CLOSED.
--- NOTE | 2017-02-27 02:00 | NUR ---
RESTING IN BED, EYES CLOSED. NO DISTRESS NOTED.
--- NOTE | 2017-02-27 04:10 | NUR ---
PATIENT AWAKE. DENIES NEEDS.
--- NOTE | 2017-02-27 05:45 | NUR ---
IN BED, AWAKE, WATCHING TV. WAS ASSISTED UP TO BR AND BACK TO BED AT 0500.
--- NOTE | 2017-02-27 07:30 | NUR ---
PT IS SITTING IN A WC IN HER ROOM WATCHING TV AND WAITING FOR BREAKFAST. ALERT AND ORIENTED X 3. DENIES ACUTE PAIN OR DISCOMFORT. VSS. NO SOB NOTED. O2 IS ON @ 3LPM PER NC. CALL LIGHT AND BEDSIDE TABLEA RE WITHIN EASY REACH.
[2017-02-27 08:00] VITALS: BP 113/72
--- NOTE | 2017-02-27 09:34 | NUR ---
PT IS PARTICIPATING IN THERAPY AT THIS TIME.
--- NOTE | 2017-02-27 10:16 | NUR ---
IN THERAPY ROOM ACTIVE IN THERAPY WITH OT.SOLO WELL.
--- NOTE | 2017-02-27 13:35 | NUR ---
PT IS RESTING QUIETLY IN BED WITH EYES CLOSED. RESPS ARE EVEN AND UNLABORED. NO ACUTE DISTRESS NOTED.
--- NOTE | 2017-02-27 17:14 | NUR ---
PT ASSISTED TO THE BATHROOM WITH MIN ASSIST FOR TRANSFERS. SBA FOR TOILETING. PT SITTING UP IN WC AFTER AWAITING SUPPER DELIVERY.
--- NOTE | 2017-02-27 19:00 | NUR ---
SITTING UP IN W/C AT BEDSIDE. DENIES NEEDS. CONTINUES ON O2 @ 3L PER N/C.
--- NOTE | 2017-02-27 21:15 | NUR ---
ASSESSMENT COMPLETE. BP 120/66. ALL SCHEDULED BP MEDS GIVEN TO PATIENT GIOVANNIIGHT. FSBS 218. GAVE HER 12 UNITS HUMALOG S/S INSULIN IN LUQ ABDOMEN. DAUGHTER HERE AND WILL ASSIST PATIENT TO GET READY FOR BED. PATIENT DENIES FURTHER NEEDS.
[2017-02-27 22:10] VITALS: BP 120/66
--- NOTE | 2017-02-27 23:45 | NUR ---
PATIENT IN BED, RESTING QUIETLY. HOB UP 20 DEGREES. DAUGHTER REMAINS AT BEDSIDE. PATIENT APPEARS COMFORTABLE.
--- NOTE | 2017-02-28 02:35 | NUR ---
REMAINS IN BED, RESTING QUEITLY WITH EYES CLOSED. APPEARS COMFORTABLE.
--- NOTE | 2017-02-28 04:30 | NUR ---
ASSISTED PATIENT UP TO BR COMMODE TO URINATE AND PERFORM PERSONAL CARE. SAYS WILL CALL WHEN FINISHED.
--- NOTE | 2017-02-28 04:45 | NUR ---
FSBS 75. GAVE PATIENT SNACK OF 8 OZS 2% MILK AND 3 DANIE CRAX SQUARES FO SUPPORT BLOOD SUGAR UNTIL BREAKFAST. REMAINS UP IN W/C AT BEDSIDE.
--- NOTE | 2017-02-28 05:35 | NUR ---
GAVE PATIENT SCHEDULED MEDS AND ASSISTED HER BACK INTO BED FROM W/C. DENIES FURTHER NEEDS.
--- NOTE | 2017-02-28 06:00 | NUR ---
RESTING QUIETLY IN BED, EYES CLOSED.
--- NOTE | 2017-02-28 07:29 | NUR ---
PT IS RESTING IN BED WITH EYES CLOSED. AWOKE EASILY TO VERBAL STIMULI. DENIES ACUTE DISCOMFORT. NO SOB NOTED. VSS. O2 IS ON @ 2LPM PER NC. PT ASSISTED TO GET UP TO WC FOR BREAKFAST. SR'S ARE UP X 2 WHILE IN BED. CALL LIGHT AND BEDSIDE TABLE ARE WITHIN EASY REACH.
[2017-02-28 08:28] VITALS: BP 90/42
--- NOTE | 2017-02-28 09:31 | NUR ---
PT ASSISTED TO THE BATHROOM BY HER DAUGHTER. NO FURTHER NEEDS VOICED.
--- NOTE | 2017-02-28 09:55 | NUR ---
SITTING UP IN WC.DAUGHTER IN BED.CL IN REACH.
--- NOTE | 2017-02-28 12:13 | NUR ---
PT IS SITTING IN A WC IN HER ROOM FEEDING SELF LUNCH. NO NEEDS VOICED. DAUGHTER IN ROOM VISITING.
--- NOTE | 2017-02-28 15:38 | NUR ---
PT IS SITTING IN HER WC IN HER ROOM WATCHING TV AND VISITING WITH HER DAUGHTER. NO ACUTE DISTRESS NOTED.
--- NOTE | 2017-02-28 17:41 | NUR ---
PT IS FEEDING SELF IN HER ROOM. NO DISTRESS NOTED.
--- NOTE | 2017-02-28 19:45 | NUR ---
PT RESTING QUIETLY, NO S/S OF ACUTE DISTRESS. PT DENIES ANY NEEDS.
[2017-02-28 19:48] VITALS: BP 99/62
--- NOTE | 2017-02-28 21:45 | NUR ---
DAUGHTER IN ROOM, CONVERSING WITH MOTHER, PT IS ALERT, ORIENTED, DENIES ANY NEEDS. PT STATES SHE WOULD LIKE DAUGHTER TO ASSIST HER WITH HER HS CARES.
--- NOTE | 2017-03-01 00:10 | NUR ---
DAUGHTER OBSERVED LEAVING, PT EYES CLOSED RESPIRATIONS REGULAR AND UNLABORED. NO S/S OF ACUTE DISTRESS.
--- NOTE | 2017-03-01 03:00 | NUR ---
ASSISTED SBA FOR THE BATHROOM, PLEASANT, CONVERSIVE, DENIES ANY OTHER NEEDS. PT IS MOTIVATED WITH REHAB AND MAKING PROGRESS TO GO HOME.
[2017-03-01 06:41] LABS: BASOPHILS 0.3 % (0-2); EOSINOPHILS 2.3 % (0-7); HEMATOCRIT 41.5 % (36.0-48.0); HEMOGLOBIN 13.6 g/dL (12-16); IMMATURE GRANULOCYTES 0.6 % (0-5); LYMPHOCYTES 29.4 % (15-50); MCH 30.2 pg (26.0-34.0); MCHC 32.8 g/dL (31.0-37.0); MEAN PLATELET VOLUME 11.2 fL (7.4-10.4); MONOCYTES 8.8 % (2-11); NEUTROPHILS 58.6 % (40-80); RBC 4.51 10x6/uL (4.00-5.40); RDW 16.3 % (11.5-14.5); WBC 6.5 10x3/uL (4.8-10.8)
[2017-03-01 06:50] LABS: PLATELET COUNT 147 10x3/uL (130-400)
[2017-03-01 06:59] LABS: ANION GAP 14.1 mmol/L (8-16); CALCIUM 9.2 mg/dL (8.5-10.1); CARBON DIOXIDE 27.8 mmol/L (21.0-32.0); CREATININE - SERUM 0.8 mg/dL (0.6-1.3); POTASSIUM - SERUM 3.9 mmol/L (3.5-5.1)
--- NOTE | 2017-03-01 08:00 | NUR ---
DIMAS IN ROOM. HELPING PATIENT WITH SHOWER THIS AM
[2017-03-01 08:19] VITALS: BP 102/59
--- NOTE | 2017-03-01 10:00 | NUR ---
PATIENT IS ALERT/ORIENT X4. CALL LIGHT WITHIN REACH. OXYGEN ON AT 1L PER N/C. VOICES NO NEEDS AT THIS TIME. DR Leticia BELTRAN INTO SEE PATIENT. MEW ORDERS RECEIVED.
--- NOTE | 2017-03-01 11:35 | NUR ---
GLUCOSE LEVEL 129. NO SLIDING SCALE INSULIN GIVEN
--- NOTE | 2017-03-01 19:30 | NUR ---
PT SITTING UP IN W/C, STATES HER DAUGHTER WILL COME AND ASSIST HER WITH HS CARES. PT PLEASANT AND CONVERSIVE.
[2017-03-01 20:08] VITALS: BP 84/46
--- NOTE | 2017-03-02 00:10 | NUR ---
PT AWAKE, ASSISTED PT TO BATHROOM, BRACE IS PUT ON WITH MOD ASSIST.
--- NOTE | 2017-03-02 05:00 | NUR ---
PT STATED SHE MAY NEED HELP GETTING BACK TO BED SHE STATED SHE JUST WASN'T FEELING GOOD SHE WAS. PT IS ALERT, ORIENTED AND AWARE OF SURROUNDINGS, PT DENIES PAIN, AND CAN'T PUT A FINGER ON IT. PT STATES SHE IS COLD, HOWEVER PT STATES SHE HAS A HISTORY OF BEING COLD. PROVIDED WARM BLANKET.
--- NOTE | 2017-03-02 09:00 | NUR ---
PT AM MEDS ADMINISTERED. PT NOT GIVEN ANY BP MEDICATIONS DUE TO 93/63 BP. WCTM.
--- NOTE | 2017-03-02 09:29 | NUR ---
Nutrition Follow Up: Pt is eating 92% meal avg on a diabetic diet. +BM 02/28/17. Meds and labs reviewed. Pt remains at low nutritional risk. RD following.
--- NOTE | 2017-03-02 18:14 | NUR ---
PT EATING DINNER, FAMILY AT BEDSIDE, DENIES NEEDS. WCTM.
--- NOTE | 2017-03-02 18:31 | NUR ---
RESTING QUIETLY IN BED. NO S/S DISTRESS. CALL LIGHT IN REACH
[2017-03-02 21:15] VITALS: BP 106/62
--- NOTE | 2017-03-03 03:01 | NUR ---
PT AWAKE, C/O HER STOMACH FEELING NOT RIGHT, REQUESTED HER BS BE CHECKED, BLOOD SUGAR 92. PT STATED THAT WAS GOOD, SHOULDN'T BE FEELING LIKE THIS BUT WOULD LIKE TO HAVE A SNACK, PT REFUSED HS SNACK EARLIER. PROVIDED TO PATIENT PER REQUEST DANIE CRACKERS AND MILK.
--- NOTE | 2017-03-03 04:13 | NUR ---
PT RESTING QUIETLY, NO S/S OF ACUTE DISTRESS.
[2017-03-03 07:40] LABS: BASOPHILS 0.5 % (0-2); EOSINOPHILS 3.2 % (0-7); HEMATOCRIT 40.9 % (36.0-48.0); HEMOGLOBIN 13.4 g/dL (12-16); IMMATURE GRANULOCYTES 0.5 % (0-5); LYMPHOCYTES 32.9 % (15-50); MCHC 32.8 g/dL (31.0-37.0); MCV 91.7 fL (80.0-100.0); MEAN PLATELET VOLUME 10.8 fL (7.4-10.4); NEUTROPHILS 53.9 % (40-80); PLATELET COUNT 171 10x3/uL (130-400); RBC 4.46 10x6/uL (4.00-5.40); RDW 16.8 % (11.5-14.5); WBC 4.3 10x3/uL (4.8-10.8)
[2017-03-03 07:56] LABS: ANION GAP 14.7 mmol/L (8-16); CALCIUM 8.3 mg/dL (8.5-10.1); CARBON DIOXIDE 24.8 mmol/L (21.0-32.0); CREATININE - SERUM 0.9 mg/dL (0.6-1.3); POTASSIUM - SERUM 3.5 mmol/L (3.5-5.1)
--- NOTE | 2017-03-03 08:00 | NUR ---
EATING BREAKFAST.CL IN REACH.
--- NOTE | 2017-03-03 08:00 | NUR ---
PATIENT IS ALERT/ORIENT X4. DAUGHTER IN ROOM WITH PATIENT. OXYGEN ON AT 1L PER N/C. CALL LIGHT WITHIN REACH. PLAN IS TO DISCHARGE PATIENT TODAY. PATIENT AND DAUGHTER STATE THAT THEY WERE NOT AWARE OF DISCHARGE UNTIL LAST NIGHT. THIS NURSE TALKED TO TAYLOR CASTAÑEDA. Alice ERAZO STATED SHE HAD TALKED TO DAUGHTER AND PATIENT YESTERDAY MORNING IN REGARDS TO DISCHARGE TODAY.
[2017-03-03] MEDS ORDERED: DIOVAN80 MG PO (08:27)
[2017-03-03 08:54] VITALS: BP 94/60
--- NOTE | 2017-03-03 09:52 | NUR ---
PATIENT DISCHARGING HOME TODAY WITH FAMILY.PATIENT HAS REFUSED HOME HEALTH AND HAS REFUSED O2. WE HAD A LONG DISCUSSION OF HER NOT USING HER O2 AT HOME, SHE THEN TOLD ME TO TALK WITH HER DAUGHTER. DINA, OUR CL, AND MYSELF SPOKE WITH DAUGHTER REGARDING HER MOTHERS WISHES THAT IT COULD RESULT IN HER BEING ADMITTED BACK INTO ACUTE HOSPITAL AND POSSIBLE . SHE SAYS THAT SHE WILL ABIDE BY HER MOTHERS WISHES AND NOT GO HOME ON O2, BUT THAT SHE WOULD AGREE TO HER NEBULIZER TREATMENTS.NEBULIZER ORDERED FROM [facility] PAT[facility]. DR. CLEMONS 03/11/17 @ 12:15, DR. PRATER 05/31/17 @ 2:30. [facility] FORM SIGNED AND FILED IN CHART.
--- NOTE | 2017-03-03 10:00 | NUR ---
DR. Leticia BELTRAN INTO SEE PATIENT NEW ORDERS RECEIVED FOR DISCHARGE TO HOME.
--- NOTE | 2017-03-03 11:30 | NUR ---
DISCHARGE INSTRUCTIONS GONE OVER WITH PATIENT AND DAUGHTER. NEBULIZER HAS BEEN DELIEVERED. MEDICATIONS CALLED TO [facility].
--- NOTE | 2017-03-03 12:04 | NUR ---
PATIENT HELPED OUT TO CAR BY NURSING STAFF.
== END 2017-03-03 12:07 | disposition home or self-care (01) | DRG 189 ==
LOC: D.REHAB 14:37
PROVIDERS: ADMIT Emergency Medicine
DX: J96.01 Acute respiratory failure with hypoxia (principal); J18.9 Pneumonia, unspecified organism; I10 Essential (primary) hypertension; Z87.891 Personal history of nicotine dependence; K21.9 Gastro-esophageal reflux disease without esophagitis; G47.00 Insomnia, unspecified; J44.9 Chronic obstructive pulmonary disease, unspecified; I87.8 Other specified disorders of veins; Z66 Do not resuscitate; E11.65 Type 2 diabetes mellitus with hyperglycemia; J31.0 Chronic rhinitis; I27.2 Other secondary pulmonary hypertension

== ENCOUNTER → 2017-10-13 08:59 | Outpatient (CLI) | payer MEDICARE, OTHER ==
[2017-02-24 10:51] VITALS: BMI 41.2
--- NOTE | ~2017-10-13 | EC ---
PATIENT:ANGELY TOLENTINO DATE OF SERVICE: 10/13/17 SEX: F MEDICAL RECORD: [id number] DATE OF : 36 LOCATION:[facility] AGE OF PATIENT: 77 ADMISSION DATE: 10/13/17 REFERRING PHYSICIAN: INTERPRETING PHYSICIAN: CHRISTIANA CERRATO MD ECHOCARDIOGRAM REPORT ECHO CHARGES 4 ECHO COMPLETE CLINICAL DIAGNOSIS: COPD/PULMONARY HTN ECHOCARDIOGRAPHIC MEASUREMENTS (adult normal given) AC root (d.<3.7cm) 3.3 cm LV Septum d (<1.2 cm> 1.3 cm Valve Excursion 1.8 cm LV Septum (systole) 1.8 cm Left Atria (s.<4.0cm> 4.1 cm LVPW d(<1.2cm) 1.2 cm RV (d.<2.3cm) 2.9 cm LVPW (sytole) 1.8 cm LV diastole(<5.6CM) 5.5 cm MV E-F(>70mm/sec) cm LV systole 4.2 cm LVOT Diameter 2.0 cm MV exc.(>10mm) cm Est.ejection fraction (50-75%) % Pericardial Effusion N DOPPLER: LVIT cm/sec A 43.0 cm/sec E 97.0 cm/sec LA cm/sec RVSP 58.0 mmHg LVOT 78.0 cm/sec AOP1/2T m/s Asc. Ao 114 cm/sec RVOT 69.0 cm/sec RA cm/sec PA 82.0 cm/sec AV Gradient Peak 5.2 mmHg AV Mean 2.7 mmHg AV Area 2.1 cm MV Gradient Peak 4.7 mmHg MV Mean 1.7 mmHg MV Area cm COMMENTS: Expediter Service Order: Lourdes VARGAS Customer Service Leader: 2 Dr. Patterson TAPE# PACS DATE OF SERVICE: 10/13/2017 PROCEDURE: Echocardiogram. FINDINGS: 1. Left ventricular chamber size is within normal limits. Left ventricular systolic function is normal. Overall ejection fraction estimated at 55% to 60%. 2. Left atrium, right atrium, and right ventricular chamber sizes are mildly dilated. Left atrium measures 4.1 cm. 3. Valvular structures have normal structure and motion. ECHOCARDIOGRAM REPORT [id number] ANGELY TOLENTINO 4. Doppler interrogation reveals mild tricuspid regurgitation, no other valvular insufficiency or stenosis; however, pulmonary systolic pressure is elevated, estimated at 58 mmHg. 5. No evidence of pericardial effusion or left ventricular thrombus. TRANSINT:[id number] Voice Confirmation ID: [id number] DOCUMENT ID: [id number] CHRISTIANA CERRATO MD at 1153 CC: [id number] DICTATION DATE: 10/13/17 1250 VISITING HOUSEKEEPER: 10/13/17 1319 DEP CLI 10/13/17 [place] [id number] [place] [id number]
== END | disposition home or self-care (01) ==
LOC: D.ECHO 08:59 → D.RT 10:00
DX: J44.9 Chronic obstructive pulmonary disease, unspecified (principal); I10 Essential (primary) hypertension

== ENCOUNTER → 2018-11-02 08:50 | Outpatient (CLI) | payer MEDICARE, OTHER ==
[2017-02-24 10:51] VITALS: BMI 41.2
== END | disposition home or self-care (01) ==
LOC: D.RT 10-10 11:00
PROVIDERS: ATTEND Internal Medicine Pulmonary Disease
DX: R93.89 Abnormal findings on diagnostic imaging of other specified body structures (principal)

== ENCOUNTER 2019-05-10 23:48 | Inpatient (IN) | payer MEDICARE, OTHER ==
[~2019-05-10] VITALS: Ht 160 cm; Wt 105.5 kg
[2019-05-11] VITALS (22 sets, daily range): BP systolic 122–152; BP diastolic 66–101; BMI 41.1
[2019-05-11 00:57] LABS: APTT 39.4 SECONDS (22.8-39.4); INR 1.11 (0.85-1.17); PROTIME 13.8 SECONDS (11.6-15.0)
[2019-05-11 01:00] LABS: ALBUMIN 3.6 g/dL (3.4-5.0); ALKALINE PHOSPHATASE 67 U/L (46-116); ALT (SGPT) 11 U/L (10-68); BILIRUBIN - TOTAL 0.67 mg/dL (0.2-1.3); CALC OSMOLALITY 294 mosm/kg (275-300); CALCIUM 9.5 mg/dL (8.5-10.1); CARBON DIOXIDE 29.4 mmol/L (21.0-32.0); CHLORIDE - SERUM 109 mmol/L (98-107); GLUCOSE 114 mg/dL (74-106); POTASSIUM - SERUM 4.2 mmol/L (3.5-5.1); SODIUM 147 mmol/L (136-145); UREA NITROGEN 18 mg/dL (7-18); eGFR NON AFRICAN AMERICAN 56 mL/min (90-120)
[2019-05-11 01:09] LABS: BASOPHILS 0.2 % (0-2); EOSINOPHILS 3.2 % (0-7); HEMATOCRIT 43.5 % (36.0-48.0); LYMPHOCYTES 28.2 % (15-50); MCH 30.6 pg (26.0-34.0); MCHC 32.2 g/dL (31.0-37.0); MEAN PLATELET VOLUME 10.4 fL (7.4-10.4); MONOCYTES 8.3 % (2-11); NEUTROPHILS 60.1 % (40-80); PLATELET COUNT 158 10x3/uL (130-400); RBC 4.58 10x6/uL (4.00-5.40); RDW 16.1 % (11.5-14.5); WBC 6.2 10x3/uL (4.8-10.8)
[2019-05-11 01:11] LABS: CKMB 1.2 U/L (0.0-3.6); CREATINE KINASE 35 UL (21-215); PRO BNP 5691 pg/mL (0-450)
[2019-05-11 01:15] LABS: TROPONIN-I < 0.017 ng/mL (0.000-0.060)
--- NOTE | 2019-05-11 01:32 | NUR ---
PT GIVEN BLANKETS
--- NOTE | 2019-05-11 02:29 | NUR ---
PT ASSISTED WITH BEDPAN.
--- NOTE | 2019-05-11 04:05 | NUR ---
PT ARRIVED VIA BED AND ER STAFF. SOB WITH EXERTION, GENERALIZED WEAKNESS PRESENT. RN X3 ASSIST TO REPOSITION AND CHANGE LINENS. LUNG SOUNDS WHEEZES/DIMINISHED. SPO2 92-94 ON 15L HFNC. S1S2 HEARD, PERIPHERAL PULSES PRESENT. BOWEL SOUNDS ACTIVE IN ALL QUADRANTS. STEPHANIE CARE PROVIDED AT THIS TIME. AOX4, FOLLOWS ALL COMMANDS. DENIES ANY PAIN AT THIS TIME. ROOM VISIBLE FROM NURSES STATION, CALL LIGHT WITHIN PT REACH. CPOC.
--- NOTE | 2019-05-11 04:30 | NUR ---
DAUGHTER AT BEDSIDE, UPDATE PROVIDED AND QUESTIONS ANSWERED.
[2019-05-11] MEDS ORDERED: PIOGLITAZONE15 MG PO (04:35)
--- NOTE | 2019-05-11 05:00 | NUR ---
INCONTINENT OF URINE, COMPLETE LINEN CHANGE PROVIDED AND PARTIAL BATH GIVEN.
--- NOTE | 2019-05-11 05:17 | NUR ---
ASSISTED PT WITH BEDPAN, VOIDED 300MLS CLOUDY URINE AT THIS TIME. STEPHANIE CARE PROVIDED, PT REPOSITIONED FOR COMFORT. VSS, ROOM VISIBLE FROM NURSES STATION. CPOC.
--- NOTE | 2019-05-11 06:10 | NUR ---
JOSI NOTIFIED OF CONSULT, NO NEW ORDERS REC'D AT THIS TIME.
--- NOTE | 2019-05-11 08:56 | NUR ---
UP IN BED EATING BREAKFAST AT THIS TIME. NO ACUTE DISTRESS NOTED. VSS. PT ALERT WITH SOME CONFUSION TO SITUATION. REORIENTATION PROVIDED. PT DENIES ANY NEEDS. WILL CONTINUE PLAN OF CARE.
--- NOTE | 2019-05-11 10:56 | NUR ---
DAUGHTER AT BEDSIDE AT THIS TIME. NO ACUTE DISTRESS NOTED. VSS. WILL CONTINUE PLAN OF CARE.
[2019-05-11 11:49] LABS: APPEARANCE CLEAR (CLEAR); BILIRUBIN NEGATIVE (NEGATIVE); COLOR YELLOW (YELLOW); GLUCOSE NEGATIVE (NEGATIVE); KETONE NEGATIVE (NEGATIVE); NITRITE NEGATIVE (NEGATIVE); PROTEIN NEGATIVE (NEGATIVE); SPECIFIC GRAVITY 1.015 (1.005-1.020); UROBILINOGEN NORMAL (NORMAL)
--- NOTE | 2019-05-11 12:57 | NUR ---
BILL PLACED AT THIS TIME PER PHYSICAN ORDERS FOR ACCURATE I&O. 16 ANGUILLAN. YELLOW URINE NOTED FLOWING IN TO CLOSED CONTAINER. PROCEDURE WAS PERFORMED VIA STERILE PROCEDURE. NO ACUTE DISTRESS NOTED. WILL CONTINUE PLAN OF CARE.
--- NOTE | 2019-05-11 13:08 | CN ---
PATIENT NAME:ANGELY TOLENTINO MEDICAL RECORD: [id number] : 36 LOCATION:[facility] ADMIT DATE: 05/11/19 ACCOUNT: [id number] CONSULTING PHYSICIAN: JULIO WEBB MD REFERRING PHYSICIAN: RHEA RAMOS MD DATE OF CONSULTATION: 05/11/2019 HISTORY OF PRESENT ILLNESS: Angely Tolentino is an 78-year-old female with history of pulmonary hypertension, actually on sildenafil therapy, obstructive pulmonary disease, obstructive sleep apnea, has AFib as well as hypertension, admitted with shortness of breath. Has had AFib, typically controlled; however, became acutely short of breath, although in retrospect she reports it may be however probably the past week. We are asked to see her concerning her cardiovascular status. PAST MEDICAL HISTORY: Includes: 1. History of hypertension. 2. Hyperlipidemia. 3. Pulmonary hypertension. 4. Atrial fibrillation. 5. Obstructive sleep apnea. ALLERGIES: PENICILLIN, KEFLEX AND FLONASE. MEDICATIONS: At home typically include Brovana updraft 15 mcg b.i.d., Atrovent 0.5 every 6 hours, Xopenex 0.63 mg every 6 hours p.r.n., Revatio 20 mg p.o. t.i.d., Diovan 160 every day, bisoprolol HCT 5/6.25 every day, aspirin 81 every day, glyburide/metformin 2.5/500 b.i.d., pioglitazone 30 mg p.o. every day. SOCIAL HISTORY: Nonsmoker, nondrinker. By her report, is able to take care of her ADLs. REVIEW OF SYSTEMS: The patient reports easy bruising but reports no swollen glands. The patient reports no fever, no night sweats, no significant weight gain, no significant weight loss. No significant exercise tolerance. The patient reports no dry eyes, no irritation, no vision change. Patient reports no difficulty hearing and no ear pain. Patient reports no frequent nose bleeds or nose and sinus problems. Patient reports on arm pain on exertion. No shortness of breath while lying down. No history of heart murmur. Patient reports no cough, no wheezing or coughing up blood. Patient reports no abdominal pain, no vomiting. Normal appetite. No diarrhea and not vomiting blood. No nausea and no constipation. Patient reports no incontinence. No difficulty urinating. No hematuria. No increased frequency. Patient reports no muscle aches. No weakness, no arthralgias, no back pain. No swelling of the extremities. Patient reports no abnormal mole, no jaundice, no rashes. Reports no loss of consciousness. No weakness and no numbness. No seizures, dizziness, or headaches. The patient reports no depression, no sleep disturbance, feeling safe in a relationship and no alcohol abuse. Patient reports on fatigue. Reports no runny nose or sinus pressure. No itching, no hives, and no frequent sneezing. PHYSICAL EXAMINATION: GENERAL: Pleasant female, appears stated age. VITAL SIGNS: Blood pressure 134/90, pulse 108, irregular. HEENT: Normocephalic, atraumatic. CONSULT REPORT [id number] ANGELY TOLENTINO NECK: No bruits noted. HEART: Irregular, rates around 100, II/ systolic ejection murmur. LUNGS: Slightly prolonged expiratory phase. Few expiratory wheezes. ABDOMEN: Soft, nontender. EXTREMITIES: Pulses 2+ with 1+ edema. IMPRESSION: Atrial fibrillation, typically controls on beta-sima with a mild dose of bisoprolol. I suspect the acute pulmonary issues are causing the elevated rates. We will give a one-time dose of digoxin. We will check echocardiographic study. TRANSINT:[id number] Voice Confirmation ID: [id number] DOCUMENT ID: [id number] JULIO WEBB MD at 1308 CC: [id number] DICTATION DATE: 05/11/1949 CAN FILLING ROOM SWEEPER: 05/11/19 1158 ADM IN [place] [id number] [place] [address]
--- NOTE | 2019-05-11 14:58 | NUR ---
NO ACUTE DISTRESS NOTED. VSS. UP IN BED VISITIN WITH DAUGHTER. DENIES ANY NEEDS. WILL CONTINUE PLAN OF CARE.
--- NOTE | 2019-05-11 16:57 | NUR ---
UP IN BED AWAKE AT THIS TIME. DENIES ANY NEEDS. NO ACUTE DISTRESS NOTED. WILL CONTINUE PLAN OF CARE.
--- NOTE | 2019-05-11 18:56 | NUR ---
CHG BATH GIVEN AT THIS TIME WITH TOTAL LINEN CHANGE. NO ACUTE DISTRESS NOTED. VSS. WILL CONTINUE PLAN OF CARE.
--- NOTE | 2019-05-11 19:45 | NUR ---
RECEIVED PATIENT CARE SHIFT ASSESSMENT COMPLETED, PT AWAKE ALERT AND ORIENTED AT THIS TIME, REQUESTING DAUGHTER TO VISIT, INFORMED OF VISITING HOURS. DENIES PAIN BUT CLAIMS TO FEEL "BAD" OR "SICK" BUT UNABLE TO VERBALIZE NEEDS WILL CONTINUE TO MONITOR
--- NOTE | 2019-05-11 20:12 | MORECARE ---
CASE MANAGEMENT DISCHARGE SUMMARY PATIENT: ANGELY TOLENTINO UNIT: [id number] ADM DATE: 05/11/19 AGE: 78 : 38 SEX: F ROOM/BED: D.2311 AUTHOR: NYLA,DOC PHYSICIAN: REFERRING PHYSICIAN: RHEA RAMOS MD DATE OF SERVICE: 05/11/19 Discharge Plan Patient Name: ANGELY TOLENTINO Facility: [facility]:[place] : 1940 Planned Disposition: Home Anticipated Discharge Date: Discharge Date: Expected LOS: Initial Reviewer: [email or web address] Initial Review Date: 05/11/2019 Generated: 05/11/19 9:11 pm Comments DCP- Discharge Planning Updated by [email or web address]: Stefanie Pack on 05/11/19 7:[address] Patient Name: ANGELY TOLENTINO Admission Status: ER Accout number: [id number] Admission Date: 05-11-2019 : 1940 Admission Diagnosis: Attending: RHEA RAMOS Current LOS: 1 Anticipated DC Date: Planned Disposition: Home Primary Insurance: MEDICARE A & B Discharge Planning Comments: CM met with patient to complete initial dc planning assessment. CM educated patient on the CM role and verbal consent given by patient to complete assessment. Patient lives at home with her daughter where she is independent with her care. At discharge patient plans to return home and feels this is a safe discharge. CM discussed availability of home health, rehab services, and medical equipment. Her daughter will be her otr refrigerated cdl truck driver home. Patient has a nebulizer and home o2 ( [facility] home patient ) Patient denied known discharge needs at this time. CM will continue to follow and will assist as needed with dc plans/needs. Esthetics Instructor: Stefanie Pack DCPIA - Discharge Planning Initial Assessment Updated by [email or web address]: Stefanie Pack on 05/11/19 8:09 pm * Is the patient Alert and Oriented? Yes * How many steps to enter\exit or inside your home? * PCP CLEMONS * Pharmacy [facility] * Preadmission Environment Home with Family * ADLs Independent * Other Equipment HOME 02 / PORTABLE 02 NEBULIZER WALKER, CANE, W/C * List name and contact numbers for known caregivers / representatives who currently or will assist patient after discharge: GIACOMO TOLENTINO - DAUGHTER- [phone] * Verbal permission to speak to the caregivers and representatives has been obtained from the patient. Yes * Community resources currently utilized None * Additional services required to return to the preadmission environment? No * Can the patient safely return to the preadmission environment? Yes * Has this patient been hospitalized within the prior 30 days at any hospital? No Patient Name: ANGELY TOLENTINO Page [id number] at 2012 All edits/amendments must be made on the electronic document DICTATION DATE: 05/11/192010 FUNDRAISING SPECIALIST: JOSÉ 05/11/192010 RPT#: [id number] [place] DATE: STATUS: ADM IN [facility] [address] [place] [address] END OF REPORT
--- NOTE | 2019-05-11 22:12 | NUR ---
PATIENT RECEIVED HS MEDICATIONS DAUGHTER AT BEDSIDE, PATIENT ANXIOUS ABOUT DAUGHTER LEAVING
--- NOTE | 2019-05-11 23:10 | NUR ---
REASSESSMENT COMPLETED, PATIENT AAO X3 CONFUSION TO PLACE BUT EXPRESSING WISHES TO GO TO THE ER BC SHE IS SO SICK THEY WILL SEND HER TO INTENSIVE CARE, REORIENTATION ATTEMPT X1 - PATIENT ABLE TO FOLLOW COMMANDS AND REORIENTED SUCESSFULLY.
[2019-05-12] VITALS (24 sets, daily range): BP systolic 74–135; BP diastolic 52–89
--- NOTE | 2019-05-12 00:15 | NUR ---
PT TALKING OUTLOUD, WHEN I CHECKED ON PATIENT SHE INFORMED ME THAT SHE WAS LEAVING, DAUGHTER WAS ON HER WAY TO GET HER. VERY CONFUSED, AWOKE FROM A BAD DREAM AND HAS A TERRIBLE HEADACHE. SHAKING AND COLD AT THIS POINT BLOOD GLUCOSE 120 - TEMP WNL - REORIENTED PATIENT TO TIME, PLACE, SITUATION, PATIENT CLAIMS SHE JUST WANTS TO GO HOME AND WILL SIGN AMA. EXPLAINED TO PATIENT SHE WOULD BE UNABLE TO LEAVE AMA DUE TO HIGH AMOUNTS OF OXYGEN AND ALTERED MENTAL STATUS BUT WOULD INFORM THE DOCTOR IN THE AM THAT SHE DOESN'T WANT TO BE HERE ANYMORE. DAUGHTER AT BEDSIDE, SOME RELIEF FOR PATIENT, DECIDED SHE WANTED TO STAY BUT WANTS TO SPEAK WITH HER DOCTORS. INFORMED PATIENT THEY WOULD ROUND LATER IN THE DAY AND THAT SHE NEEDED REST FOR THE NIGHT. PATIENT REFUSING TO SLEEP OR TURN LIGHT OFF, DESATS WHEN SHE TALKS TO 88% iNSTRUCTED PATIENT TO DEEP BREATH IN THROUGH NOSE AND OUT OF MOUTH PATIENT CALMED AND REBOUNDED 02 SATURATION. VSS CPOC
--- NOTE | 2019-05-12 04:13 | NUR ---
REASSESSMENT COMPLETED SEE FLOWSHEET
[2019-05-12 04:14] LABS: BASOPHILS 0.2 % (0-2); EOSINOPHILS 1.6 % (0-7); HEMATOCRIT 42.8 % (36.0-48.0); HEMOGLOBIN 13.5 g/dL (12-16); IMMATURE GRANULOCYTES 0.3 % (0-5); LYMPHOCYTES 17.7 % (15-50); MCH 30.3 pg (26.0-34.0); MCHC 31.5 g/dL (31.0-37.0); MEAN PLATELET VOLUME 10.2 fL (7.4-10.4); MONOCYTES 10.1 % (2-11); NEUTROPHILS 70.1 % (40-80); PLATELET COUNT 149 10x3/uL (130-400); RBC 4.46 10x6/uL (4.00-5.40); RDW 16.2 % (11.5-14.5); WBC 6.3 10x3/uL (4.8-10.8)
[2019-05-12 04:33] LABS: ANION GAP 11.2 mmol/L (8-16)
[2019-05-12 04:39] LABS: POTASSIUM - SERUM 3.2 mmol/L (3.5-5.1)
--- NOTE | 2019-05-12 14:22 | NUR ---
AFIB RVR ON CM. PAGED DR CERRATO. DR RAMOS IN ICU. REPORTED TO DR RAMOS. REC'D ORDERS FOR AMIODARONE.
--- NOTE | 2019-05-12 14:40 | NUR ---
BP 78/50 NS BOLUS STARTED
--- NOTE | 2019-05-12 15:08 | NUR ---
NSR ON CM. 99 BPM. BP 95/62. PT PULLING OFF BIPAP MASK. PLACED BACK ON HER HIGHFLOW. PT PULLING HIGHFLOW OFF. REPORTED TO DR RAMOS. REC'D ORDERS FOR RESTRAINTS.
--- NOTE | 2019-05-12 15:53 | NUR ---
75/49. REPORTED TO DR RAMOS. REC'D ORDER FOR ALBUMIN.
--- NOTE | 2019-05-12 19:00 | NUR ---
PT AWAKE, PT IS STILL CONFUSED AT THIS TIME, RESP EVEN AND NON LABORED, NO CHANGES FROM NURSE REPORT
--- NOTE | 2019-05-12 20:44 | NUR ---
PT TALKING WITH FAMILY AT BGEDSIDE, PT MORE RESTLESS, BUT FAMILY ADVISED THAT SHE IS LESS CONFUSED. PT WANTING TO TALK AND SPO2 ONLY STAYING IN UPPER 80'S LOW 90'S.
--- NOTE | 2019-05-12 21:39 | NUR ---
PT MORE RESTLESS, AND TALKING NOT WANTING TO BREATH THROUGH HER NOSE, DR. RAMOS CALLED AND NEW ORDERS GIVEN
[2019-05-13] VITALS (42 sets, daily range): BP systolic 68–119; BP diastolic 27–93; Ht 160 cm; Wt 105.5 kg
--- NOTE | 2019-05-13 03:00 | NUR ---
PT REASSESSMENT COMPLETED AT THIS TIME, NO CHANGES NOTED
[2019-05-13 03:25] LABS: BASOPHILS 0.1 % (0-2); EOSINOPHILS 0.6 % (0-7); HEMATOCRIT 42.5 % (36.0-48.0); HEMOGLOBIN 12.9 g/dL (12-16); IMMATURE GRANULOCYTES 0.1 % (0-5); LYMPHOCYTES 11.8 % (15-50); MCH 30.1 pg (26.0-34.0); MCHC 30.4 g/dL (31.0-37.0); MEAN PLATELET VOLUME 10.4 fL (7.4-10.4); MONOCYTES 13.5 % (2-11); NEUTROPHILS 73.9 % (40-80); PLATELET COUNT 134 10x3/uL (130-400); RBC 4.29 10x6/uL (4.00-5.40); RDW 16.4 % (11.5-14.5); WBC 6.9 10x3/uL (4.8-10.8)
[2019-05-13 03:28] LABS: MCV 99.1 fL (80.0-100.0)
[2019-05-13 03:29] LABS: ANION GAP 13.2 mmol/L (8-16); CALCIUM 8.9 mg/dL (8.5-10.1)
[2019-05-13 03:30] LABS: CREATININE - SERUM 1.7 mg/dL (0.6-1.3); POTASSIUM - SERUM 4.2 mmol/L (3.5-5.1)
--- NOTE | 2019-05-13 03:53 | NUR ---
2200 PT RESTING MORE CALMLY AT THIS TIME, RESP EVEN
--- NOTE | 2019-05-13 03:54 | NUR ---
0100 PT RESTING WITH EYES CLOSED, RESP EVEN, NO DISTRESS NOTED, WILL CONT TO MONITOR
--- NOTE | 2019-05-13 03:54 | NUR ---
2300 PT REASSWESSMENT COMPLETED AT THIS TIME, NO CHANGES NOTED AT THIS TIME.
--- NOTE | 2019-05-13 05:17 | NUR ---
PT ASKING FOR WATER BIPAP REMOVED AND WATER GIVE, PT IS STILL CONFUSED, WILL CONT. TO MONITOR
--- NOTE | 2019-05-13 06:18 | NUR ---
PT GIVEN HCG BATH WITH COMPLETE LINEN CHANGED, PT SOLO WELL
--- NOTE | 2019-05-13 07:37 | NUR ---
PT AWAKENS EASLY. WEARING BIPAP PER RT. VSS, UOP MARGINAL AND URINE DARK. SBP 90. WILL ATTEMPT OXYMIZER AND BREAKFAST.
[2019-05-13 07:59] LABS: MAGNESIUM - SERUM 1.5 mg/dL (1.8-2.4); PHOSPHOROUS 5.5 mg/dL (2.5-4.9)
--- NOTE | 2019-05-13 10:52 | NUR ---
DR RAMOS PAGED FOR PT IS HYPOTENSIVE. DR RAMOS HERE AT BS. NS 500CC BOLUS GIVEN. BP NOW 90/60 AT PRESENT.
--- NOTE | 2019-05-13 13:17 | NUR ---
BIPAP TAKEN OFF AT PTS REQUEST AND FEW SIPS OF WATER TAKEN IN. SPO2 DROPS TO LOW 80"S AFTER FEW MIN. PT TOLERATING BIPAP BETTER TODAY AND DOESNT REQUIRE RESTRAINTS.
--- NOTE | 2019-05-13 13:47 | NUR ---
1000- REPORTED HYPOTENTION TO DR RMAOS.
--- NOTE | 2019-05-13 16:04 | NUR ---
BIPAP REMOVED AND PLACED ON HIGHFLOW NC AT 15L. PT UNABLE TO MAINTAIN SPO2.
--- NOTE | 2019-05-13 16:09 | NUR ---
DAUGHTER HERE AT BS. UPDATE GIVEN.
--- NOTE | 2019-05-13 19:00 | NUR ---
SHIFT ASSESSMENT COMPLETE. VS STABLE. WILL CONTINUE TO MONITOR.
--- NOTE | 2019-05-13 19:09 | NUR ---
BP 58/38. REC'D ORDER FROM DR RAMOS TO START VASOPRESSIN.
[2019-05-14] VITALS (41 sets, daily range): BP systolic 78–105; BP diastolic 50–73
[2019-05-14 04:05] LABS: BASOPHILS 0 % (0-2); EOSINOPHILS 0.9 % (0-7); HEMATOCRIT 35.7 % (36.0-48.0); HEMOGLOBIN 10.9 g/dL (12-16); IMMATURE GRANULOCYTES 0.3 % (0-5); LYMPHOCYTES 11.5 % (15-50); MCH 30.3 pg (26.0-34.0); MCHC 30.5 g/dL (31.0-37.0); MCV 99.2 fL (80.0-100.0); MEAN PLATELET VOLUME 10.5 fL (7.4-10.4); MONOCYTES 12.8 % (2-11); NEUTROPHILS 74.5 % (40-80); PLATELET COUNT 125 10x3/uL (130-400); RDW 16.3 % (11.5-14.5); WBC 6.7 10x3/uL (4.8-10.8)
[2019-05-14 04:12] LABS: ANION GAP 13.6 mmol/L (8-16); CALCIUM 8.4 mg/dL (8.5-10.1); CARBON DIOXIDE 28.8 mmol/L (21.0-32.0); CREATININE - SERUM 2.4 mg/dL (0.6-1.3); POTASSIUM - SERUM 4.4 mmol/L (3.5-5.1)
--- NOTE | 2019-05-14 10:12 | NUR ---
LINENS SOILED, APPEARS FC LEAKING ON TO LINENS. BILL CATH FLUSHED WITH NS. BLOODY DRAINAGE. FC CHANGED. BATH AND LINENS CHANGED. PT SOLO WELL.
--- NOTE | 2019-05-14 17:08 | NUR ---
PT TAKEN OFF BIPAP FOR MEALS AND SOLO FINE. SPO2 DROPS TO 85% AFTER APPROX 10MIN. PT CONTINUES TO BE PINK AND NAIL BEDS BRISK AND W/O SOB. DISCUSSED CODE STATUS DEFINITION WITH DAUGHTER AND SHE BECOMES TEARFUL. REPLACED BIPAP AT 60% TO MAINTAIN SPO2 ABOVE 90%. PT SOLO WELL. ZOFRAN FOR NAUSEA AFTER PT C/O NAUSEA.
--- NOTE | 2019-05-14 19:00 | NUR ---
REPORT RECEIVED, CARE ASSUMED. PT IS LAYING IN BED ON THE BIPAP AT THIS TIME. INITIAL ASSESSMENT COMPLETED, SEE FLOWSHEET FOR DETAILS. PT DENIES NEEDS AT THIS TIME. NO SIGNS OF ACUTE DISTRESS. WILL CONTINUE TO MONITOR.
--- NOTE | 2019-05-14 21:00 | NUR ---
PM MEDS GIVEN, SEE EMAR FOR DETAILS. PT IS RESTING IN BED AT THIS TIME. TOOK BIPAP OFF SO PT COULD TAKE HER MEDS, O2 SATS WERE STILL OK SO GAVE PT A BREAK FROM BIPAP FOR A FEW MINS. SATS DROPPED DOWN AFTER ABOUT 10 MINS AND PT WAS PLACED BACK ON BIPAP. NO FURTHER NEEDS NOTED. WILL CONTINUE TO MONITOR.
--- NOTE | 2019-05-14 23:00 | NUR ---
REASSESSMENT COMPLETED, SEE FLOWSHEET FOR DETAILS. PT IS LAYING IN BED ON BIPAP AT THIS TIME. NO NEEDS NOTED. NO SIGNS OF ACUTE DISTRESS. WILL CONTINUE TO MONITOR.
[2019-05-15] VITALS (67 sets, daily range): BP systolic 49–139; BP diastolic 26–101
--- NOTE | 2019-05-15 01:00 | NUR ---
PT IS LAYING IN BED ON THE BIPAP WITH EYES CLOSED AT THIS TIME. NO NEEDS VOICED. A SHORT BREAK FROM BIPAP WAS PROVIDED. NO SIGNS OF ACUTE DISTRESS NOTED. WILL CONTINUE TO MONITOR.
--- NOTE | 2019-05-15 03:00 | NUR ---
REASSESSMENT COMPLETED, SEE FLOWSHEET FOR DETAILS. PT IS LAYING IN BED WITH EYES CLOSED. NO NEEDS VOICED. NO SIGNS OF ACUTE DISTRESS. WILL CONTINUE TO MONITOR.
--- NOTE | 2019-05-15 05:00 | NUR ---
PT IS LAYING IN BED ON BIPAP WITH EYES CLOSED. NO NEEDS VOICED. NO SIGNS OF ACUTE DISTRESS. WILL CONTINUE TO MONITOR.
--- NOTE | 2019-05-15 07:00 | NUR ---
SHIFT ASSESSMENT COMPLETED. PT CARE ASSUMED. MONITORS ON AND WORKING, PT ON BIPAP, CALL LIGHT WITHIN REACH, WILL CONTINUE TO OBSERVE.
--- NOTE | 2019-05-15 07:00 | NUR ---
SHIFT ASSESSMENT COMPLETED. PT CARE ASSUMED. MONITORS ON AND WORKING, VITALS STABLE, PRESSORS ON BOARD FOR HYPOTENSION. SEE FLOW SHEET FOR FURTHER DETIALS. MONITORS ON AND WORKING, CALL LIGHT WITHIN REACH WILL CONTINUE TO OBSERVE.
[2019-05-15 07:45] LABS: BASOPHILS 0.1 % (0-2); EOSINOPHILS 0 % (0-7); HEMATOCRIT 30.6 % (36.0-48.0); HEMOGLOBIN 9.6 g/dL (12-16); IMMATURE GRANULOCYTES 0.6 % (0-5); LYMPHOCYTES 12.4 % (15-50); MCHC 31.4 g/dL (31.0-37.0); MEAN PLATELET VOLUME 10.4 fL (7.4-10.4); MONOCYTES 13.7 % (2-11); NEUTROPHILS 73.2 % (40-80); RDW 16.2 % (11.5-14.5)
[2019-05-15 07:46] LABS: MCV 95.6 fL (80.0-100.0); PLATELET COUNT 162 10x3/uL (130-400); WBC 8.9 10x3/uL (4.8-10.8)
[2019-05-15 07:51] LABS: ANION GAP 14.2 mmol/L (8-16); CALCIUM 8.4 mg/dL (8.5-10.1); CARBON DIOXIDE 27.1 mmol/L (21.0-32.0); POTASSIUM - SERUM 4.3 mmol/L (3.5-5.1)
[2019-05-15 07:52] LABS: CREATININE - SERUM 3.7 mg/dL (0.6-1.3)
--- NOTE | 2019-05-15 09:00 | NUR ---
PT SITTING UP IN BED, COMPLETE LINEN CHANGE DONE AT THIS TIME, LARGE AMT OF BLOOD NOTED WHEN PT ROLLED OVER, BLOOD NOTED IN BILL CATH WELL. MD NOTIFIED OF THIS FINDING, STAT H AND H ORDERED. FAMILY AT BEDSIDE, UPDATE PROVIDED. MONITORS ON AND WORKING, VITALS STABLE. CALL LIGHT WITHIN REACH, WILL CONTINUE TO OBSERVE.
--- NOTE | 2019-05-15 11:00 | NUR ---
NO CHANGES, PT CONTINUES TO BE ON BIPAP AND PRESSORS FOR BP SUPPORT. MONITORS ON AND WORKING. FAMILY AT BEDSIDE, UPDATE PROVIDED. WILL CONTINUE TO OBSERVE.
[2019-05-15 11:29] LABS: HEMATOCRIT 30.5 % (36.0-48.0); HEMOGLOBIN 9.6 g/dL (12-16)
--- NOTE | 2019-05-15 13:00 | NUR ---
NO CHANGES, PT ON BIPAP. WILL CONTINUE TO OBSERVE. CALL LIGHT WITHIN REACH, WILL CONTINUE TO OBSERVE.
--- NOTE | 2019-05-15 13:37 | NUR ---
Nutrition Follow-up: Reports that she did not eat today. Per chart review, noted thoracentesis today. Wt: 232# No BMs recorded Labs noted: K+ 4.3, Ca 8.4, Glu 206, GFR 15 Meds noted: D5NS @ 75, Glucophage, Humulin, Albumin Rec resume diet after procedure. RD following.
[2019-05-15 17:20] LABS: INR 1.58 (0.85-1.17); PROTIME 18.2 SECONDS (11.6-15.0)
--- NOTE | 2019-05-15 18:21 | NUR ---
PELVIC U/S WAS ORDERED / BILL WAS CLAMPED TO FILL BLADDER. WHEN I WENT TO SEE IF BLADDER WAS FILLED, THE PT WAS HAVING A BRONCHOSCOPY AND GOING [facility] SAID TO HOLD OFF. I WENT BACK AT 1825 - PT NOT DOING WELL / THEY HAD TO UNCLAMP BLADDER AND US CANNOT BE DONE. I WILL CANCEL FOR NOW. PLEASE REORDER IN AM IF STILL NEEDED. GCATES, RDMS NURSES NOTIFIED.
--- NOTE | 2019-05-15 19:20 | NUR ---
REPORT RECIEVED. CARE ASSUMED. ASSESSMENT COMPLETED SEE FLOWSHEET. VENT PER ETT. 20CM AT LL. AC 18 500 100% P-12. O2 SAT 40-60%. HOB ELEVATED. VASOPRESSIN AND LEVOPHED INFUSING TO RIGHT IJ TRIPLE LUMEN. TO MAINTAIN BP. FAMILY (DAUGHTER) IS AWARE OF CRITICAL CONDITION OF PT AND POOR PROGNOSIS. BLOODY SECRETIONS NOTED FROM ETT,OGT AND BILL.
[2019-05-15 19:48] LABS: EOS BF 3 %; MACROPHAGES BF 11 %; MESOTHELIALS BF 2 %; NEUT - BF 64 %
--- NOTE | 2019-05-15 20:03 | NUR ---
1530 REC'D REPORT FROM FREDO CHESTER. PT CURRENTLY ON BIPAP AT 70%. LABORED BREATHING AND SATS DROPPING. WAS TOLD BY PREVIOUS NURSE THAT INTUBATION WAS VERY LIKELY ONCE DR. PRESCOTT COULD TALK TO THE DAUGHTER. THE DAUGHTER WAS CONTACTED AND SAID SHE WOULD BE HERE IN [address] PRESCOTT SPEAKS WITH DAUGHTER AND DECIDES TO INTUBATE PT AND PLACE [facility]. CONSENTS SIGNED. 1630 PT INTUBATED AT BEDSIDE WITH 7.[address] PRESCOTT WITHOUT COMPLICATIONS, THEN PT BEGAN BLEEDING FROM ETT. EMERGENCY BRONCH PERFORMED. DIFFICULTY MAINTAINING PT'S O2 SAT ON VENTILATOR AT 100%. DR. PRESCOTT STILL IN UNIT. NEW ORDERS REC'D THROUGHOUT PROCEDURE FOR PROPOFOL, VERSED, FENTANYL, DOBUTAMINE, BICARB DRIP, 2 AMPS OF BICARB. FAMILY AWARE OF PT'S CRITICAL CONDITION. THEY HAVE SPOKEN WITH DR. PRESCOTT, THEY DO NOT WANT CHEST COMPRESSIONS SHOULD SHE ARREST. 1845 REPORT GIVEN TO FREDO ROSADO. PT SLIGHTLY MORE STABLE.
--- NOTE | 2019-05-15 20:15 | NUR ---
SPOKE WITH DR PRESCOTT VIA PHONE AND UPDATE GIVEN.
--- NOTE | 2019-05-15 21:15 | NUR ---
PAGED DR PRESCOTT DUE TO PT BP AND O2 SAT DECREASING AGAIN. ORDERS RECIEVED.
--- NOTE | 2019-05-15 21:40 | NUR ---
TANIA PRESCOTT NOTIFIED OF PT CONTINUING TO DECLINE. RT UNABLE TO DRAW ABG DUE TO LOW BP. FAMILY STATES THAT THEY WANT TO STOP AGGRESSIVE INTERVENTIONS AND TO STOP BLOOD DRAW.
--- NOTE | 2019-05-15 22:30 | NUR ---
UNABLE TO OBTAIN VITALS AT THIS TIME. FAMILY REMAINS AT BEDSIDE.
--- NOTE | 2019-05-15 22:49 | NUR ---
ASYSTOLE PER CM. NO PULSE PER PALPATION AND AUSCULTATION. DOUGLAS LI APN NOTIFIED.
--- NOTE | 2019-05-15 23:20 | NUR ---
PRONOUNCED BY DR MANN. POSTMORTUM CARE PROVIDED. MARGARITO NOTIFIED. FAMILY REQUEST [facility].
--- NOTE | 2019-05-16 10:51 | MORECARE ---
CASE MANAGEMENT DISCHARGE SUMMARY PATIENT: ANGELY TOLENTINO UNIT: [id number] ADM DATE: 05/11/19 AGE: 78 : 36 SEX: F ROOM/BED: D.2311 AUTHOR: NYLA,DOC PHYSICIAN: REFERRING PHYSICIAN: RHEA RAMOS MD DATE OF SERVICE: 05/16/19 Discharge Plan Patient Name: ANGELY TOLENTINO Facility: [facility]:[place] : 1940 Planned Disposition: Home Anticipated Discharge Date: Discharge Date: 05/15/2019 Expected LOS: Initial Reviewer: [email or web address] Initial Review Date: 05/11/2019 Generated: 05/16/19 11:51 am DCP- Discharge Planning Updated by [email or web address]: Stefanie Pack on 05/11/19 7:[address] Patient Name: ANGELY TOLENTINO Admission Status: ER Accout number: [id number] Admission Date: 05-11-2019 : 1940 Admission Diagnosis: Attending: RHEA RAMOS Current LOS: 1 Anticipated DC Date: Planned Disposition: Home Primary Insurance: MEDICARE A & B Discharge Planning Comments: CM met with patient to complete initial dc planning assessment. CM educated patient on the CM role and verbal consent given by patient to complete assessment. Patient lives at home with her daughter where she is independent with her care. At discharge patient plans to return home and feels this is a safe discharge. CM discussed availability of home health, rehab services, and medical equipment. Her daughter will be her six horse hitch driver home. Patient has a nebulizer and home o2 ( [place] home patient ) Patient denied known discharge needs at this time. CM will continue to follow and will assist as needed with dc plans/needs. Beam Carrier Hauler Pusher: Stefanie Pack DCPIA - Discharge Planning Initial Assessment Updated by [email or web address]: Stefanie Pack on 05/11/19 8:09 pm * Is the patient Alert and Oriented? Yes * How many steps to enter\exit or inside your home? * PCP [facility] * Pharmacy [facility] * Preadmission Environment Home with Family * ADLs Independent * Other Equipment HOME 02 / PORTABLE 02 NEBULIZER WALKER, CANE, W/C * List name and contact numbers for known caregivers / representatives who currently or will assist patient after discharge: GIACOMO TOLENTINO - DAUGHTER- [phone] * Verbal permission to speak to the caregivers and representatives has been obtained from the patient. Yes * Community resources currently utilized None * Additional services required to return to the preadmission environment? No * Can the patient safely return to the preadmission environment? Yes * Has this patient been hospitalized within the prior 30 days at any hospital? No Last DP export: 05/11/19 7:12 p Patient Name: ANGELY TOLENTINO Page [id number] at 1051 All edits/amendments must be made on the electronic document DICTATION DATE: 05/16/191050 SPEECH CORRECTION CONSULTANT: JOSÉ 05/16/19 105 RPT#: [id number] DC DATE:05/15/19 STATUS: DIS IN [facility] [address] [place] [address] END OF REPORT
--- NOTE | 2019-05-17 11:35 | NUR ---
Per CMS protocol, restraint report logged into data base.
[2019-05-17 18:08] LABS: AFB SPECIMEN PROCESSING Concentration (())
[2019-07-07 12:09] LABS: ACID FAST CULTURE Negative (()); ACID FAST SMEAR Negative (())
== END 2019-05-15 23:19 | DRG 208 ==
LOC: D.ER 23:48 → D.ICU 05-11 02:14
PROVIDERS: Emergency Medicine; Internal Medicine Pulmonary Disease; ADMIT Internal Medicine Nephrology; ATTEND Internal Medicine Nephrology
PROC: 0BH17EZ Insertion of Endotracheal Airway into Trachea, Via Natural or Artificial Opening (ICD-10-PCS; principal; 2019-05-15)
PROC: 5A1935Z Respiratory Ventilation, Less than 24 Consecutive Hours (ICD-10-PCS; 2019-05-15)
PROC: 05HM33Z Insertion of Infusion Device into Right Internal Jugular Vein, Percutaneous Approach (ICD-10-PCS; 2019-05-15)
PROC: 0B9J7ZX Drainage of Left Lower Lung Lobe, Via Natural or Artificial Opening, Diagnostic (ICD-10-PCS; 2019-05-15)
DX: J96.21 Acute and chronic respiratory failure with hypoxia (principal); I50.33 Acute on chronic diastolic (congestive) heart failure; R40.2314 Coma scale, best motor response, none, 24 hours or more after hospital admission; R40.2214 Coma scale, best verbal response, none, 24 hours or more after hospital admission; R40.2114 Coma scale, eyes open, never, 24 hours or more after hospital admission; J44.1 Chronic obstructive pulmonary disease with (acute) exacerbation; E87.0 Hyperosmolality and hypernatremia; Z68.41 Body mass index [BMI] 40.0-44.9, adult; R04.89 Hemorrhage from other sites in respiratory passages; N17.9 Acute kidney failure, unspecified; I11.0 Hypertensive heart disease with heart failure; E11.9 Type 2 diabetes mellitus without complications; K21.9 Gastro-esophageal reflux disease without esophagitis; J45.909 Unspecified asthma, uncomplicated; R21 Rash and other nonspecific skin eruption; E66.9 Obesity, unspecified; L25.9 Unspecified contact dermatitis, unspecified cause; I27.20 Pulmonary hypertension, unspecified; I48.91 Unspecified atrial fibrillation; R31.9 Hematuria, unspecified; N93.9 Abnormal uterine and vaginal bleeding, unspecified